=== PATIENT | female | born 1935 ===

== ENCOUNTER → 2016-06-12 | Outpatient (CLI) | payer OTHER, BC ==
[~2016-06-12] MED LIST: ACET-1311 PO; AMOX1TAB43 PO; B-COTAB18 PO; CMD3 PO; FIBE1CHW PO; LVNIS60 SQ; MELA1TAB54 PO; NUTR-706 PO; POLY335019 PO; RISP0.5T10 PO; TMFUDL30 PO; VENL150C PO; WARF2TAB8 PO
[2016-06-12 10:34] LABS: BASO % 0.6 %; BASO ABS # 0.03 K/uL (0-0.2); COMPLETE YES; EOS % 1.5 %; HEMATOCRIT 38.2 % (37-47); IG% 0.2 %; LYMPH ABS # 1.42 K/uL (1.2-3.4); MEAN CELL VOLUME 93.9 fL (80-100); MONO % 14.8 %; NEUT % 52.9 %; PLATELET COUNT 240 K/uL (130-400); RED BLOOD COUNT 4.07 M/uL (4.2-5.4); WHITE BLOOD COUNT 4.73 K/uL (4.8-10.8)
[2016-06-12 10:44] LABS: BLOOD UREA NITROGEN 15 mg/dl (7-18); BUN/CREATININE RATIO 21.4 (10-20); CALCIUM 8.6 mg/dl (8.5-10.1); CARBON DIOXIDE 27 mmol/L (21-32); CHLORIDE 108 mmol/L (98-107); CREATININE 0.71 mg/dl (0.60-1.20); GLUCOSE 74 mg/dl (70-99); SODIUM 145 mmol/L (136-145)
--- NOTE | 2016-06-13 11:38 | CODING QUERY NO DIAGNOSIS ---
TREATMENT RENDERED WITHOUT A DIAGNOSIS 35 To promote full compliance with coding requirements relating to patient care, physician participation is requested in all cases of water vessel captain uncertainty. Please assist us with providing a diagnosis/symptom for the test(s) below: A diagnosis/symptom was not documented on your Order. A valid diagnosis/symptom is required to bill all insurances. Please remember that we are unable to code a diagnosis of rule out, probable, possible, questionable, or suspected. DOS 06/12/16 Tests that require a diagnosis: * PARTIAL RENAL PROFILE DIAGNOSIS: * CBC w/DIFF DIAGNOSIS: * BMP DIAGNOSIS: Provider Signature: Date: Thank you Yecenia Wing Traction Information Management Once completed, please kindly fax back to [phone] For questions please call [phone]
== END | disposition home or self-care (01) ==
LOC: C.LABOUTLO 10:05
PROVIDERS: ATTEND Internal Medicine
DX: Z00.00 Encounter for general adult medical examination without abnormal findings (principal)

== ENCOUNTER → 2016-06-18 | Outpatient (CLI) | payer OTHER, BC ==
[2016-06-18 10:42] LABS: INR 2.7 (0.9-1.1); PROTHROMBIN TIME (PATIENT) 30.1 SECONDS (9.0-12.0)
--- NOTE | 2016-06-19 13:14 | CODING QUERY NO DIAGNOSIS ---
TREATMENT RENDERED WITHOUT A DIAGNOSIS 35 To promote full compliance with coding requirements relating to patient care, physician participation is requested in all cases of electronics engineering manager uncertainty. Please assist us with providing a diagnosis/symptom for the test(s) below: A diagnosis/symptom was not documented on your Order. A valid diagnosis/symptom is required to bill all insurances. Please remember that we are unable to code a diagnosis of rule out, probable, possible, questionable, or suspected. DOS 06/18/16 Tests that require a diagnosis: * PT/INR DIAGNOSIS: Provider Signature: Date: Thank you Yecenia Wing Health Information Management Once completed, please kindly fax back to [phone] For questions please call [phone]
== END | disposition home or self-care (01) ==
LOC: C.LABOUTLO 10:00
PROVIDERS: ATTEND Internal Medicine
DX: Z00.00 Encounter for general adult medical examination without abnormal findings (principal)

== ENCOUNTER 2016-06-28 19:05 | Inpatient (IN) | payer OTHER, BC ==
[~2016-06-28] VITALS: Ht 162.6 cm; Wt 60.0 kg
[~2016-06-28 19:05] MED LIST changes: -AMOX1TAB43 PO; -TMFUDL30 PO; -WARF2TAB8 PO
[2016-06-28] MEDS ORDERED: WARF2TAB8 PO (19:30)
[2016-06-28] MEDS ORDERED: SODIUM CHLORIDE 0.9% 500ML 500 ML IV STA (19:36)
[2016-06-28] MEDS ORDERED: SODIUM CHLORIDE 0.9% 1000ML 1,000 ML IV STA (19:36)
[2016-06-28 19:40] LABS: BASO % 0.5 %; BASO ABS # 0.02 K/uL (0-0.2); COMPLETE YES; EOS % 0.7 %; HEMATOCRIT 36.9 % (37-47); IG% 0.2 %; LYMPH % 19.5 %; LYMPH ABS # 0.86 K/uL (1.2-3.4); MEAN CELL VOLUME 93.2 fL (80-100); MEAN CORPUSCULAR HEMOGLOBIN 31.3 pg (25-34); MEAN CORPUSCULAR HGB CONC 33.6 g/dl (32-36); MEAN PLATELET VOLUME 10.3 fL (7.4-10.4); MONO % 16.5 %; NEUT % 62.6 %; PLATELET COUNT 207 K/uL (130-400); RED BLOOD COUNT 3.96 M/uL (4.2-5.4); WHITE BLOOD COUNT 4.42 K/uL (4.8-10.8)
[2016-06-28 19:54] LABS: INR 2.5 (0.9-1.1); PARTIAL THROMBOPLASTIN RATIO 1.6; PROTHROMBIN TIME (PATIENT) 27.4 SECONDS (9.0-12.0)
[2016-06-28 19:57] LABS: ALT/SGPT 22 U/L (12-78); BLOOD UREA NITROGEN 16 mg/dl (7-18); BUN/CREATININE RATIO 22.4 (10-20); CALCIUM 8.6 mg/dl (8.5-10.1); CARBON DIOXIDE 26 mmol/L (21-32); CHLORIDE 104 mmol/L (98-107); CREATININE 0.72 mg/dl (0.60-1.20); GLUCOSE 91 mg/dl (70-99); MAGNESIUM 2.1 mg/dl (1.8-2.4); POTASSIUM 3.8 mmol/L (3.5-5.1); SODIUM 140 mmol/L (136-145)
[2016-06-28 20:06] LABS: ALKALINE PHOSPHATASE 91 U/L (45-117); AST/SGOT 18 U/L (15-37); CKMB/CK RATIO 1.8 (0-3.0)
--- NOTE | 2016-06-28 20:08 | DIAGNOSTIC IMAGING REPORT ---
CHEST ONE VIEW PORTABLE CLINICAL HISTORY: Weakness. Shortness of breath. Altered mental status. COMPARISON STUDY: Chest CT February 05, 2016 per FINDINGS: There is no pneumothorax or pleural effusion. The patient is rotated. There is no evidence of pulmonary edema. No consolidation is present. Right infrahilar opacity favors atelectasis. IMPRESSION: 1. Rotated study. No acute findings identified. 2. Mild bibasilar opacities which favor atelectasis. Electronically signed by: Douglas Hicks M.D. 06/28/2016 8:06 PM Dictated Date/Time: 06/28/2016 8:05 PM
[2016-06-28 20:35] LABS: URINE APPEARANCE CLOUDY (CLEAR); URINE BILIRUBIN NEG (NEG); URINE COLOR YELLOW; URINE EPITHELIAL CELL AUTO >30 /lpf (0-5); URINE NITRITE POS (NEG); URINE PH 7.5 (4.5-7.5); URINE SPECIFIC GRAVITY 1.026 (1.000-1.030); UROBILINOGEN POS (NEG)
[2016-06-28 20:39] LABS: MANUAL MICROSCOPIC REQUIRED? NO; REVIEW REQ? YES
--- NOTE | 2016-06-28 20:50 | DIAGNOSTIC IMAGING REPORT ---
CT OF THE HEAD WITHOUT CONTRAST CLINICAL HISTORY: Altered mental status. Anticoagulation. COMPARISON STUDY: Head CT February 05, 2016. CT DOSE: 1095.08 mGy.cm TECHNIQUE: Helical axial images of the head were obtained without IV contrast. Automated exposure control was utilized for the study. FINDINGS: No acute intracranial hemorrhage, midline shift or mass effect is present. Mild ventricular dilatation is unchanged. The basilar cisterns are patent. There are no extra-axial collections. Moderate white matter hypodensities are unchanged and suggest small vessel disease. There are no findings to suggest acute dural sinus thrombosis or acute territorial infarct. There is no calvarial fracture. The sinuses are clear. IMPRESSION: No acute intracranial findings. Electronically signed by: Douglas Hicks M.D. 06/28/2016 8:48 PM Dictated Date/Time: 06/28/2016 8:46 PM
--- NOTE | 2016-06-28 21:08 | DIAGNOSTIC IMAGING REPORT ---
CT OF THE ABDOMEN AND PELVIS WITHOUT CONTRAST CLINICAL HISTORY: Left lower quadrant pain. Altered mental status. COMPARISON STUDY: CT of the abdomen and pelvis February 06, 2016. TECHNIQUE: Axial images of the abdomen and pelvis were obtained without IV contrast. Images were reviewed in the axial, sagittal, and coronal planes. FINDINGS: A small hiatal hernia is noted. Evaluation of the abdomen and pelvis is suboptimal on this unenhanced exam. Several left hepatic lobe cysts are again noted. Unenhanced images of the spleen, adrenal glands, kidneys and pancreas are unremarkable. There is no biliary or pancreatic ductal dilatation. Mild gallbladder distention is noted without pericholecystic infiltration. No pneumatosis, free air or portal venous gas is present. There is no evidence for a bowel obstruction. A moderate amount of stool is noted within the colon and the rectum. There is no lymphadenopathy. No ascites is present. There is an old severe L1 compression fracture with retropulsion which were shown on prior exam of February 06, 2016. IMPRESSION: 1. No acute process within the abdomen or pelvis on this unenhanced exam. 2. Moderate amount of stool within the colon. 3. Mild gallbladder distention without pericholecystic infiltration. Electronically signed by: Douglas Hicks M.D. 06/28/2016 9:06 PM Dictated Date/Time: 06/28/2016 8:58 PM
[2016-06-28] MEDS ORDERED: CEFTRIAXONE SOD INJ 1 GM ADDVIAL IV STA (21:52)
[2016-06-29] MEDS ORDERED: PIPERACILLIN/TAZOBACTAM 4.5 GM/100ML D5W IV STA (00:26)
[2016-06-29] MEDS ORDERED: DOCUSATE SODIUM/SENNA 50/8.6MG TAB PO ONE (00:41)
[2016-06-29] MEDS ORDERED: ONDANSETRON INJ 2 MG/ML 2 ML VIAL IV PRN (00:45)
[2016-06-29] MEDS ORDERED: HALOPERIDOL LACTATE 5 MG/ML 1 ML VIAL IM PRN (00:45)
[2016-06-29] MEDS ORDERED: HALOPERIDOL 1 MG TAB PO PRN (00:45)
[2016-06-29] MEDS ORDERED: ACETAMINOPHEN 325 MG TAB PO PRN (00:45)
[2016-06-29] MEDS ORDERED: LACTATED RINGER'S 1000ML 1,000 ML IV ONE (00:45)
[2016-06-29] MEDS ORDERED: ALBUT/IPRATROP 3MG/0.5MG NEB 3 ML VIAL INH PRN (01:00)
[2016-06-29] MEDS ORDERED: PIPERACILL/TAZOBAC IV 4.5 GM in DEXTROSE 5% 100ML IV ONE (01:00)
[2016-06-29] MEDS ORDERED: ALBUT/IPRATROP 3MG/0.5MG NEB 3 ML VIAL INH STA (01:09)
[2016-06-29] MEDS ORDERED: PIPERACILL/TAZOBAC CONSULT ACTIVE PRN (01:15)
--- NOTE | 2016-06-29 02:38 | EMERGENCY ROOM VISIT NOTE ---
History Report prepared by Serena: Nano Rhodes Under the Supervision of: Dr. Cooper Chowdhury M.D. First contact with patient: 19:15 Chief Complaint: ALTERED MENTAL STATUS Stated Complaint: [facility] Nursing Triage Summary: Patient arrives to ED via ALS from [facility] for AMS. According to EMS, staff reports that patient has been increasingly lethargic, not opening her eyes much , and has been non-verbal. Patient has a hx of dementia, but staff report "she normally has her eyes open and is singing." Also noted to have periods of hypoxia, with O2 saturations dropping into 80's. Also reports that patient was febrile at [facility], with temperatures reaching 101. History of Present Illness The patient is an 81 year old female who presents to the Emergency Room via ALS with complaints of persistent altered mental status with onset today. Per son, the patient is nonverbal; he provided the history. The patient started to vomit 2 days ago and developed a fever. One hour ago, the patients son received a call from the patient's residence, [facility], that the patient had labored breathing and that her oxygen saturation was low. [facility] informed the patients son that the patient had a low grade fever all week. The patient has a history of blood clots, and four months ago she was treated at this hospital for blood clots. The patient is on Coumadin. Additionally, the patient's son states that he is her power of state's attorney and states that she is DNR. The history is limited due to the patient's nonverbal status. Source of History: family History Limited By: other (nonverbal) Onset: today Position: other (global) Quality: other (altered mental status) Timing: other (persistent) Associated Symptoms: + fevers, + vomiting Note: The patient had labored breathing and low oxygen saturation at her residence. Review of Systems See HPI for pertinent positives and negatives. A total of ten systems were reviewed and were otherwise negative. Past Medical & Surgical Medical Problems: (1) Acute cerebral hemorrhage (2) Dementia (3) Depression (4) Encephalopathy (5) HLD (hyperlipidemia) (6) Syncope Surgical Problems: (1) unknown surgical history Family History Patient reports no known family medical history. Social History Smoking Status: Unknown if Ever Smoked Alcohol Use: none Drug Use: none Marital Status: Housing Status: retirement Occupation Status: retired Current/Historical Medications Scheduled B-Complex Vitamins (Vitamin B Complex), 2 TABS PO DAILY Enteral Nutrition Formula (Ensure), 1 CAN PO TID Fiber (Fiber Select Gummies), 2 TABS PO DAILY Melatonin (Melatonin), 5 MG PO HS Polyethylene Glycol 3350 (Miralax), 17 GM PO DAILY Risperidone (Risperdal), 0.5 MG PO HS Venlafaxine Hcl (Effexor Xr), 150 MG PO DAILY Warfarin Sod (Jantoven), 4 MG PO DIRECTED Warfarin Sod (Jantoven), 1.5 TABS PO DIRECTED Scheduled PRN Acetaminophen (Tylenol), 325 MG PO Q4H PRN for Pain or Fever Allergies Coded Allergies: No Known Allergies (Unverified , 06/28/16) Physical Exam Vital Signs Date Time Temp Pulse Resp B/P Pulse Ox O2 Delivery O2 Flow Rate FiO2 06/28/16 23:18 91 20 143/77 96 Room Air 06/28/16 21:30 83 20 140/79 97 Room Air 06/28/16 20:01 92 20 147/76 94 Room Air 06/28/16 19:38 102 06/28/16 19:14 37.0 114 20 99/74 96 Room Air 06/28/16 19:14 96 Room Air Physical Exam GENERAL: Tired-appearing, in no acute distress. HENT: Normocephalic, atraumatic. Oropharynx unremarkable. EYES: Normal conjunctiva. Sclera non-icteric. NECK: Supple. No nuchal rigidity. FROM. No JVD. RESPIRATORY: Clear to auscultation. CARDIAC: Tachycardic rate, normal rhythm. Extremities warm and well perfused. Pulses equal. ABDOMEN: Soft, non-distended. Left lower tenderness to palpation. No rebound or guarding. No masses. RECTAL: Deferred. MUSCULOSKELETAL: Chest examination reveals no tenderness. The back is symmetrical on inspection without obvious abnormality. There is no CVA tenderness to palpation. No joint edema. LOWER EXTREMITIES: Calves are equal size bilaterally and non-tender. No edema. No discoloration. NEURO: Demented sensorium. Not following commands (baseline, per son). No sensory or motor deficits noted. SKIN: No rash or jaundice noted. Medical Decision & Procedures ER Provider Diagnostic Interpretation: X ray results as stated below per my interpretation and radiologist interpretation. Other radiology results as stated below per my review and radiologist interpretation CHEST ONE VIEW PORTABLE CLINICAL HISTORY: Weakness. Shortness of breath. Altered mental status. COMPARISON STUDY: Chest CT February 05, 2016 per FINDINGS: There is no pneumothorax or pleural effusion. The patient is rotated. There is no evidence of pulmonary edema. No consolidation is present. Right infrahilar opacity favors atelectasis. IMPRESSION: 1. Rotated study. No acute findings identified. 2. Mild bibasilar opacities which favor atelectasis. Electronically signed by: Douglas Hicks M.D. 06/28/2016 8:06 PM Dictated Date/Time: 06/28/2016 8:[address] OF THE HEAD WITHOUT CONTRAST CLINICAL HISTORY: Altered mental status. Anticoagulation. COMPARISON STUDY: Head CT February 05, 2016. CT DOSE: 1095.08 mGy.cm TECHNIQUE: Helical axial images of the head were obtained without IV contrast. Automated exposure control was utilized for the study. FINDINGS: No acute intracranial hemorrhage, midline shift or mass effect is present. Mild ventricular dilatation is unchanged. The basilar cisterns are patent. There are no extra-axial collections. Moderate white matter hypodensities are unchanged and suggest small vessel disease. There are no findings to suggest acute dural sinus thrombosis or acute territorial infarct. There is no calvarial fracture. The sinuses are clear. IMPRESSION: No acute intracranial findings. Electronically signed by: Douglas Hicks M.D. 06/28/2016 8:48 PM Dictated Date/Time: 06/28/2016 8:[address] OF THE ABDOMEN AND PELVIS WITHOUT CONTRAST CLINICAL HISTORY: Left lower quadrant pain. Altered mental status. COMPARISON STUDY: CT of the abdomen and pelvis February 06, 2016. TECHNIQUE: Axial images of the abdomen and pelvis were obtained without IV contrast. Images were reviewed in the axial, sagittal, and coronal planes. FINDINGS: A small hiatal hernia is noted. Evaluation of the abdomen and pelvis is suboptimal on this unenhanced exam. Several left hepatic lobe cysts are again noted. Unenhanced images of the spleen, adrenal glands, kidneys and pancreas are unremarkable. There is no biliary or pancreatic ductal dilatation. Mild gallbladder distention is noted without pericholecystic infiltration. No pneumatosis, free air or portal venous gas is present. There is no evidence for a bowel obstruction. A moderate amount of stool is noted within the colon and the rectum. There is no lymphadenopathy. No ascites is present. There is an old severe L1 compression fracture with retropulsion which were shown on prior exam of February 06, 2016. IMPRESSION: 1. No acute process within the abdomen or pelvis on this unenhanced exam. 2. Moderate amount of stool within the colon. 3. Mild gallbladder distention without pericholecystic infiltration. Electronically signed by: Douglas Hicks M.D. 06/28/2016 9:06 PM Dictated Date/Time: 06/28/2016 8:58 PM Laboratory Results 06/28/16 19:20 Red Blood Count 3.96, Mean Corpuscular Volume 93.2, Mean Corpuscular Hemoglobin 31.3, Mean Corpuscular Hemoglobin Concent 33.6, Mean Platelet Volume 10.3, Neutrophils (%) (Auto) 62.6, Lymphocytes (%) (Auto) 19.5, Monocytes (%) (Auto) 16.5, Eosinophils (%) (Auto) 0.7, Basophils (%) (Auto) 0.5, Neutrophils # (Auto ) 2.77, Lymphocytes # (Auto) 0.86, Monocytes # (Auto) 0.73, Eosinophils # (Auto ) 0.03, Basophils # (Auto) 0.02 06/28/16 19:20 Test 06/28/16 19:20 06/28/16 19:28 06/28/16 20:10 White Blood Count 4.42 K/uL (4.8-10.8) Red Blood Count 3.96 M/uL (4.2-5.4) Hemoglobin 12.4 g/dL (12.0-16.0) Hematocrit 36.9 % (37-47) Mean Corpuscular Volume 93.2 fL (80-100) Mean Corpuscular Hemoglobin 31.3 pg (25-34) Mean Corpuscular Hemoglobin Concent 33.6 g/dl (32-36) Platelet Count 207 K/uL (130-400) Mean Platelet Volume 10.3 fL (7.4-10.4) Neutrophils (%) (Auto) 62.6 % Lymphocytes (%) (Auto) 19.5 % Monocytes (%) (Auto) 16.5 % Eosinophils (%) (Auto) 0.7 % Basophils (%) (Auto) 0.5 % Neutrophils # (Auto) 2.77 K/uL (1.4-6.5) Lymphocytes # (Auto) 0.86 K/uL (1.2-3.4) Monocytes # (Auto) 0.73 K/uL (0.11-0.59) Eosinophils # (Auto) 0.03 K/uL (0-0.5) Basophils # (Auto) 0.02 K/uL (0-0.2) RDW Standard Deviation 45.2 fL (36.4-46.3) RDW Coefficient of Variation 13.3 % (11.5-14.5) Immature Granulocyte % (Auto) 0.2 % Immature Granulocyte # (Auto) 0.01 K/uL (0.00-0.02) Prothrombin Time 27.4 SECONDS (9.0-12.0) Prothromb Time International Ratio 2.5 (0.9-1.1) Activated Partial Thromboplast Time 40.4 SECONDS (21.0-31.0) Partial Thromboplastin Ratio 1.6 Anion Gap 10.0 mmol/L (3-11) Estimated GFR () 91.0 Estimated GFR (Non- 78.5 BUN/Creatinine Ratio 22.4 (10-20) Calcium Level 8.6 mg/dl (8.5-10.1) Magnesium Level 2.1 mg/dl (1.8-2.4) Total Bilirubin 0.2 mg/dl (0.2-1) Direct Bilirubin < 0.1 mg/dl (0-0.2) Aspartate Amino Transf (AST/SGOT) 18 U/L (15-37) Alanine Aminotransferase (ALT/SGPT) 22 U/L (12-78) Alkaline Phosphatase 91 U/L (45-117) Total Creatine Kinase 45 U/L (26-192) Creatine Kinase MB 0.8 ng/ml (0.5-3.6) Creatine Kinase MB Ratio 1.8 (0-3.0) Troponin I < 0.015 ng/ml (0-0.045) Total Protein 6.4 gm/dl (6.4-8.2) Albumin 3.0 gm/dl (3.4-5.0) Lipase 130 U/L (73-393) Thyroid Stimulating Hormone (TSH) 0.760 uIu/ml (0.300-4.500) Bedside Lactic Acid Venous 1.31 mmol/L (0.90-1.70) Urine Color YELLOW Urine Appearance CLOUDY (CLEAR) Urine pH 7.5 (4.5-7.5) Urine Specific [place] 1.026 (1.000-1.030) Urine Protein NEG (NEG) Urine Glucose (UA) NEG (NEG) Urine Ketones TRACE (NEG) Urine Occult Blood NEG (NEG) Urine Nitrite POS (NEG) Urine Bilirubin NEG (NEG) Urine Urobilinogen POS (NEG) Urine Leukocyte Esterase TRACE (NEG) Urine WBC (Auto) 5-10 /hpf (0-5) Urine RBC (Auto) 0-4 /hpf (0-4) Urine Hyaline Casts (Auto) 1-5 /lpf (0-5) Urine Epithelial Cells (Auto) >30 /lpf (0-5) Urine Bacteria (Auto) 4+ (NEG) Urine Renal Epithelial Cells /lpf (0-5) Laboratory results reviewed by me Medications Administered Medications (Trade) Dose Ordered Sig/Ashkan Route Start Time Stop Time Status Last Admin Dose Admin Sodium Chloride 1,000 ml @ 125 mls/hr Q8H STAT IV 06/28/16 19:36 06/29/16 00:55 DC 06/28/16 20:00 125 MLS/HR Sodium Chloride (Nss 500ml) 500 ml @ 999 mls/hr Q31M STAT IV 06/28/16 19:36 06/28/16 20:06 DC 06/28/16 20:00 999 MLS/HR Ceftriaxone Sodium (Rocephin Inj) 1 gm NOW STAT IV 06/28/16 21:52 06/28/16 21:54 DC 06/28/16 22:02 1 GM ECG Indication: altered mental status Rate (beats per minute): 105 Rhythm: sinus tachycardia Findings: no ectopy (non specific ST semgent, poor baseline data) ED Course 1930: The patient was evaluated in room A10. A complete history and physical exam was performed. 1935: Sodium Chloride 500 ml @ 999 mls/hr IV, Sodium Chloride 1000 ml @ 125 mls/ hr IV 2151: Rocephin 1 gm IV 2156: I reevaluated the patient; she is resting. 2214: I discussed the case with Dr. Rucker ([facility]); he will further evaluate the patient. Medical Decision Prior records/ancillary studies reviewed and summarized above. Nursing notes reviewed and agree them. Additional history obtained from her son. The patient's history was concerning for altered mental status. Differential diagnosis: Etiologies such as infection, hypoglycemia, electrolyte abnormalities, cardiac sources, intracerebral event, toxicologic, neurologic, as well as others were entertained. Physical examination: As above. ER treatment provided: IV Lock Normal saline hydration. IV Rocephin On reassessment the patient felt better. Diagnostics interpretation by me: ECG: Nonischemic The labs revealed an unremarkable CBC. INR was therapeutic. Chemistry panel was unremarkable as well as cardiac markers. LFTs and lipase were negative. Imaging studies: Head and abdominal CT as above. Chest x-ray as above. The patient had a change in mental status. It appears that this is due to a UTI. The patient has a therapeutic INR. Further workup for PE was not performed. The patient is a DO NOT RESUSCITATE per her son who is her power of state's attorney. He is comfortable with admission, fluids and antibiotics. Consultation: A consultation was placed with the hospitalist. The case was discussed and diagnostics were reviewed. The patient was evaluated in the ER for further treatment. The chart was completed utilizing [employer] Speech voice recognition software. Grammatical errors, random word insertions, pronoun errors, and incomplete sentences are an occasional consequence of this system due to software limitations, ambient noise, and hardware issues. Any formal questions or concerns about the content, text, or information contained within the body of this dictation should be directly addressed to the physician for clarification. Consults Time Called: 2209 Consulting Physician: Dr. Rucker ([facility]) Returned Call: 2214 I discussed the case with Dr. Rucker (jania); he will further evaluate the patient. Impression Primary Impression: Metabolic encephalopathy Additional Impression: UTI (urinary tract infection) Scribe Attestation The scribe's documentation has been prepared under my direction and personally reviewed by me in its entirety. I confirm that the note above accurately reflects all work, treatment, procedures, and medical decision making performed by me. Departure Information Dispostion Being Evaluated By Hospitalist [facility] Patient Instructions My [facility] Problem Qualifiers
[2016-06-29] MEDS: PIPERACILL/TAZOBAC IV 3.375 GM in DEXTROSE 5% 100ML IV SCH ×3 (05:32→22:14)
--- NOTE | 2016-06-29 06:04 | HISTORY & PHYSICAL EXAMINATION ---
DATE OF ADMISSION: 06/28/2016 PRIMARY CARE PHYSICIAN: Dr. Treviño. History obtained from patient's son and records. Limited history obtained from px secondary to dementia. CHIEF COMPLAINT: Altered mental status, increased lethargy. HISTORY OF PRESENT ILLNESS: Medical history significant for dementia, pulmonary embolism, on anticoagulation , hypertension, hyperlipidemia. Recent confinement last January 2016 for acute bilateral pulmonary embolism with RV strain. The patient discharged on Coumadin. Last few days, the patient looked tired, as per son; noted to be increasingly lethargic, not opening her eyes. Nonverbal. Normally, patient has her eyes open, is singing. Px co of achy L sided abd pain w/ nausea/emesis. Moist cough noted, episodic hypoxemia at the correction. Temperature of 101 as per records. At the Emergency Room, the patient received IV ceftriaxone for UTI. MEDICAL HISTORY: As above. HOME MEDICATIONS: Include Risperdal, Effexor, Jantoven, Tylenol, fiber, melatonin, MiraLax. ALLERGIES: No known drug allergies. FAMILY HISTORY: Could not be obtained. PERSONAL AND SOCIAL HISTORY: Cannot be obtained. correction resident. REVIEW OF SYSTEMS: Cannot be reliably obtained. PHYSICAL EXAMINATION: VITAL SIGNS: Blood pressure was noted to be 147/76, pulse rate 100, RR 20, T 37 O2 sats 94 on room air. GENERAL: Noted to be demented.. No respiratory distress. Eyes closed. HEENT: pink palp conjunctivae, dry mucosa. NECK: Short neck. LUNGS: Decreased breath sounds, decreased effort. HEART: Regular rate and rhythm. ABDOMEN: Some tenderness on the left side. EXTREMITIES: No edema. no tenderness NEUROLOGIC: Demented. LABORATORIES: Hemoglobin was noted to be 12.5, hematocrit 36.9, white cells count 4.4, platelets 207. Sodium 140, potassium 3.8, chloride 104, CO2 26, BUN 16, creatinine 0.7, glucose 91. Normal lactic acid. INR was 2.5. CT head, no acute pathology. Chest x-ray right infrahilar opacity versus atelectasis. CT abdomen and pelvis, moderate amount of stool. UA, nitrite positive., ASSESSMENT: 1. Delirium on dementia secondary to infection possible aspiration pneumonitis with cough symptoms and episodic hypoxemia at the correction UTI no overt sepsis 2. abdominal pain multifactorial : urinary tract infection constipation 3. history of pulmonary embolism. INR therapeutic PLAN: GMF ff CS, Zosyn aspiration precautions for now. IVF Bowel regimen. DVT prophylaxis, Coumadin, INR 2 to 3. DNR, as per son/POA, Candy Garcia. Contact number [phone]. [facility]
[2016-06-29 06:09] LABS: BASO % 0.9 %; BASO ABS # 0.03 K/uL (0-0.2); COMPLETE YES; EOS % 0.6 %; HEMATOCRIT 34.7 % (37-47); LYMPH % 31.2 %; LYMPH ABS # 1.08 K/uL (1.2-3.4); MEAN CELL VOLUME 91.8 fL (80-100); MEAN CORPUSCULAR HEMOGLOBIN 30.4 pg (25-34); MEAN CORPUSCULAR HGB CONC 33.1 g/dl (32-36); MEAN PLATELET VOLUME 10.1 fL (7.4-10.4); MONO % 24.6 %; NEUT % 42.7 %; PLATELET COUNT 186 K/uL (130-400); RED BLOOD COUNT 3.78 M/uL (4.2-5.4); WHITE BLOOD COUNT 3.46 K/uL (4.8-10.8)
[2016-06-29 06:17] LABS: INR 2.4 (0.9-1.1); PROTHROMBIN TIME (PATIENT) 26.2 SECONDS (9.0-12.0)
[2016-06-29 06:47] LABS: BLOOD UREA NITROGEN 10 mg/dl (7-18); BUN/CREATININE RATIO 14.6 (10-20); CALCIUM 8.2 mg/dl (8.5-10.1); CARBON DIOXIDE 29 mmol/L (21-32); CHLORIDE 106 mmol/L (98-107); CREATININE 0.68 mg/dl (0.60-1.20); GLUCOSE 83 mg/dl (70-99); POTASSIUM 3.7 mmol/L (3.5-5.1); SODIUM 141 mmol/L (136-145)
[2016-06-29] MEDS ORDERED: INFLUENZA VIRUS QUAD VACCINE 0.5 ML SYR IM. ONE (07:00)
[2016-06-29] MEDS ORDERED: INFLUENZA ADMINISTRATION CHARGE ONE (07:00)
[2016-06-29] MEDS ORDERED: PNEUMOCOCCAL ADMINISTRATION CHARGE ONE (07:00)
[2016-06-29] MEDS ORDERED: PNEUMOCOCCAL POLYSACCHARIDES 25 MCG/0.5 ML VIAL/SYR IM. ONE (07:00)
[2016-06-29 07:25] VITALS: BP 141/78; PULSE 90; TEMP 37.1; O2SAT 95
[2016-06-29] MEDS: VITAMIN B COMPLEX TAB PO SCH (07:50)
[2016-06-29] MEDS: VENLAFAXINE HCL XR 150 MG CAPXR PO SCH (07:51)
[2016-06-29] MEDS: DOCUSATE SODIUM/SENNA 50/8.6MG TAB PO SCH ×2 (07:52→20:52)
[2016-06-29] MEDS: POLYETHYLENE (MIRALAX) 17 GM PACK PO SCH (07:53)
[2016-06-29 08:00] VITALS: O2SAT 95
--- NOTE | 2016-06-29 14:37 | Progress Note ---
Medicine Progress Note Date & Time of Visit: Jun 29, 2016 at 14:27. Subjective seen sitting up in bed, awake, alert, focuses to examiner but not oriented, speaks random words appears comfortable has coarse cough denies chest pain, dyspnea, abdominal pain, nausea no other signs/symptoms noted Objective Last 8 Hrs Date Time Temp Pulse Resp B/P Pulse Ox O2 Delivery O2 Flow Rate FiO2 06/29/16 08:00 95 Room Air 06/29/16 07:25 37.1 90 18 141/78 95 Room Air Physical Exam: General- oriented x 3, not in distress, speaks in sentences with no effort Eyes- EOMI, anicteric ENT- oropharynx clear Neck- supple, no JVD Lungs- mild rales at the bases, no wheeze Heart- regular rhythm; no murmur, normal rate Abdomen- normal bowel sounds, soft, nontender Extremities- no pretibial edema, no calf tenderness; peripheral pulses intact Neuro- alert, not oriented, moves all extremities equally Skin- warm & dry Laboratory Results: Last 24 Hours Test 06/28/16 19:20 06/28/16 19:28 06/28/16 20:10 06/29/16 05:25 White Blood Count 4.42 K/uL 3.46 K/uL Red Blood Count 3.96 M/uL 3.78 M/uL Hemoglobin 12.4 g/dL 11.5 g/dL Hematocrit 36.9 % 34.7 % Mean Corpuscular Volume 93.2 fL 91.8 fL Mean Corpuscular Hemoglobin 31.3 pg 30.4 pg Mean Corpuscular Hemoglobin Concent 33.6 g/dl 33.1 g/dl Platelet Count 207 K/uL 186 K/uL Mean Platelet Volume 10.3 fL 10.1 fL Neutrophils (%) (Auto) 62.6 % 42.7 % Lymphocytes (%) (Auto) 19.5 % 31.2 % Monocytes (%) (Auto) 16.5 % 24.6 % Eosinophils (%) (Auto) 0.7 % 0.6 % Basophils (%) (Auto) 0.5 % 0.9 % Neutrophils # (Auto) 2.77 K/uL 1.48 K/uL Lymphocytes # (Auto) 0.86 K/uL 1.08 K/uL Monocytes # (Auto) 0.73 K/uL 0.85 K/uL Eosinophils # (Auto) 0.03 K/uL 0.02 K/uL Basophils # (Auto) 0.02 K/uL 0.03 K/uL RDW Standard Deviation 45.2 fL 44.3 fL RDW Coefficient of Variation 13.3 % 13.1 % Immature Granulocyte % (Auto) 0.2 % 0.0 % Immature Granulocyte # (Auto) 0.01 K/uL 0.00 K/uL Prothrombin Time 27.4 SECONDS 26.2 SECONDS Prothromb Time International Ratio 2.5 2.4 Activated Partial Thromboplast Time 40.4 SECONDS Partial Thromboplastin Ratio 1.6 Sodium Level 140 mmol/L 141 mmol/L Potassium Level 3.8 mmol/L 3.7 mmol/L Chloride Level 104 mmol/L 106 mmol/L Carbon Dioxide Level 26 mmol/L 29 mmol/L Anion Gap 10.0 mmol/L 6.0 mmol/L Blood Urea Nitrogen 16 mg/dl 10 mg/dl Creatinine 0.72 mg/dl 0.68 mg/dl Estimated GFR () 91.0 95.1 Estimated GFR (Non- 78.5 82.0 BUN/Creatinine Ratio 22.4 14.6 Random Glucose 91 mg/dl 83 mg/dl Calcium Level 8.6 mg/dl 8.2 mg/dl Magnesium Level 2.1 mg/dl Total Bilirubin 0.2 mg/dl Direct Bilirubin < 0.1 mg/dl Aspartate Amino Transf (AST/SGOT) 18 U/L Alanine Aminotransferase (ALT/SGPT) 22 U/L Alkaline Phosphatase 91 U/L Total Creatine Kinase 45 U/L Creatine Kinase MB 0.8 ng/ml Creatine Kinase MB Ratio 1.8 Troponin I < 0.015 ng/ml Total Protein 6.4 gm/dl Albumin 3.0 gm/dl Lipase 130 U/L Thyroid Stimulating Hormone (TSH) 0.760 uIu/ml Bedside Lactic Acid Venous 1.31 mmol/L Urine Color YELLOW Urine Appearance CLOUDY Urine pH 7.5 Urine Specific [place] 1.026 Urine Protein NEG Urine Glucose (UA) NEG Urine Ketones TRACE Urine Occult Blood NEG Urine Nitrite POS Urine Bilirubin NEG Urine Urobilinogen POS Urine Leukocyte Esterase TRACE Urine WBC (Auto) 5-10 /hpf Urine RBC (Auto) 0-4 /hpf Urine Hyaline Casts (Auto) 1-5 /lpf Urine Epithelial Cells (Auto) >30 /lpf Urine Bacteria (Auto) 4+ Urine Renal Epithelial Cells /lpf Date/Time Source Procedure Growth Status 06/28/16 20:00 Blood Blood Culture Pending Received 06/28/16 19:20 Blood Blood Culture Pending Received 06/29/16 05:55 Nasal MRSA DNA Surveillance Screen - Final Specimen Negative for MRSA by DNA Probe Complete 06/28/16 20:10 Urine , Clean Catch Urine Culture Pending Received Assessment & Plan 81 year old female with history of Dementia, PE on coumadin, presenting with altered mental status ALTERED MENTAL STATUS LIKELY ENCEPHALOPATHY FROM POSSIBLE BILATERAL PNEUMONIA, R/O ASPIRATION POSSIBLE UTI - ff up blood culture urine culture - afebrile clinically appears stable - continue empiric Zosyn IV for now ABDOMINAL PAIN Senokot S ordered for constipation HISTORY OF PE - INR 2.4 - resume coumadin - INR daily DVT prophylaxis Coumadin Disposition pending Current Inpatient Medications: Current Inpatient Medications Medications (Trade) Dose Ordered Sig/Ashkan Route Start Time Stop Time Status Last Admin Dose Admin Acetaminophen (Tylenol Tab) 650 mg Q4H PRN PO 06/29/16 00:45 07/29/16 00:44 Risperidone (Risperdal Tab) 0.5 mg HS PO 06/29/16 21:00 07/29/16 20:59 Venlafaxine HCl (effeXOR EXTENDED REL CAP) 150 mg DAILY PO 06/29/16 08:00 07/29/16 08:59 06/29/16 07:51 150 MG Vitamin B Complex (Vitamin B Complex) 2 tab DAILY PO 06/29/16 08:00 07/29/16 07:59 06/29/16 07:50 2 TAB Polyethylene (Miralax Powder Packet) 17 gm QAM PO 06/29/16 08:00 07/29/16 07:59 06/29/16 07:53 17 GM Senna/Docusate Sodium (Senokot S Tab) 1 tab BID PO 06/29/16 08:00 07/29/16 08:59 06/29/16 07:52 1 TAB Piperacillin Sod/ Tazobactam Sod (Consult) 1 ea UD PRN N/A 06/29/16 01:15 07/29/16 01:14 Ondansetron HCl (Zofran Inj) 4 mg Q6H PRN IV 06/29/16 00:45 07/29/16 00:44 Haloperidol (Haldol Tab) 2 mg Q4H PRN PO 06/29/16 00:45 07/29/16 00:44 Haloperidol Lactate (Haldol Inj) 2 mg Q2H PRN IM 06/29/16 00:45 07/29/16 00:44 Albuterol/ Ipratropium 3 ml 3 ml Q2H PRN INH 06/29/16 01:00 07/29/16 00:59 Piperacillin Sod/ Tazobactam Sod/ Dextrose (Zosyn Iv/D5 100ml) 115 ml @ 28.75 mls/ hr Q8H IV 06/29/16 06:00 07/06/16 05:59 06/29/16 13:48 28.75 MLS/HR
[2016-06-29] MEDS: PATIENT'S HEIGHT AND/OR WEIGHT NEEDED SCH ×2 (15:30→17:30)
[2016-06-29 15:36] VITALS: BP 149/75; PULSE 80; TEMP 37.4; O2SAT 94
[2016-06-29] MEDS: WARFARIN SOD 4 MG TAB PO SCH (16:59)
[2016-06-29] MEDS: RISPERIDONE 0.5 MG TAB PO SCH (20:52)
[2016-06-29 22:27] VITALS: Ht 162.6 cm; Wt 60.0 kg
[2016-06-30 00:12] VITALS: BP 159/74; PULSE 51; TEMP 36.5; O2SAT 93
[2016-06-30] MEDS: PIPERACILL/TAZOBAC IV 3.375 GM in DEXTROSE 5% 100ML IV SCH ×3 (05:38→21:55)
[2016-06-30 06:31] LABS: INR 2.5 (0.9-1.1); PROTHROMBIN TIME (PATIENT) 27.7 SECONDS (9.0-12.0)
[2016-06-30] MEDS: VITAMIN B COMPLEX TAB PO SCH (07:35)
[2016-06-30] MEDS: DOCUSATE SODIUM/SENNA 50/8.6MG TAB PO SCH ×2 (07:35→20:42)
[2016-06-30] MEDS: VENLAFAXINE HCL XR 150 MG CAPXR PO SCH (07:36)
[2016-06-30] MEDS: POLYETHYLENE (MIRALAX) 17 GM PACK PO SCH (07:36)
[2016-06-30 07:45] VITALS: BP 150/75; PULSE 89; TEMP 36.8; O2SAT 96
[2016-06-30 15:18] VITALS: BP 125/72; PULSE 62; TEMP 37; O2SAT 98
[2016-06-30] MEDS: WARFARIN SOD 1 MG TAB PO SCH (17:08)
[2016-06-30] MEDS: WARFARIN SOD 0.5 MG TAB PO SCH (17:08)
[2016-06-30] MEDS: D5NSS + 20MEQ KCL 1,000 ML IV SCH (19:24)
[2016-06-30] MEDS: RISPERIDONE 0.5 MG TAB PO SCH (20:42)
--- NOTE | 2016-06-30 22:08 | Progress Note ---
Medicine Progress Note Date & Time of Visit: Jun 30, 2016 at 18:51. Subjective family visited, assisted patient with lunch noted by RNs to be somewhat drowsy in the afternoon, somewhat agitated on my exam, patient pleasantly confused, saying random words not in distress, comfortable Objective Last 8 Hrs Date Time Temp Pulse Resp B/P Pulse Ox O2 Delivery O2 Flow Rate FiO2 06/30/16 15:18 37.0 62 18 125/72 98 Physical Exam: General- oriented x 3, not in distress, speaks in sentences with no effort Eyes- EOMI, anicteric Neck- no JVD Lungs- mild rales at the bases, no wheezes, goo air entry Heart- regular rhythm; no murmur, normal rate Abdomen- normal bowel sounds, soft, nontender Extremities- no pretibial edema, no calf tenderness Neuro- alert, not oriented, moves all extremities equally Skin- warm & dry Laboratory Results: Last 24 Hours Test 06/30/16 06:00 Prothrombin Time 27.7 SECONDS Prothromb Time International Ratio 2.5 Assessment & Plan 81 year old female with history of Dementia, PE on coumadin, presenting with altered mental status ALTERED MENTAL STATUS LIKELY ENCEPHALOPATHY FROM POSSIBLE BILATERAL PNEUMONIA, R/O ASPIRATION and UTI - blood culture:pending urine culture: gram negative bacilli - remains afebrile per daughter in law chato, patient not yet at baseline mental status, usually more awake, pleasant - continue empiric Zosyn IV for now ff up cultures IV fluids added for poor oral intake - Speech Therapy evaluated patient, recommend pureed diet ABDOMINAL PAIN Senokot S ordered for constipation (+) BMs no signs of abdominal pain HISTORY OF PE - INR 2.5 - continue coumadin - INR daily DVT prophylaxis Coumadin Disposition pending management of pneumonia and UTI as noted above resident of [facility] Current Inpatient Medications: Current Inpatient Medications Medications (Trade) Dose Ordered Sig/Ashkan Route Start Time Stop Time Status Last Admin Dose Admin Acetaminophen (Tylenol Tab) 650 mg Q4H PRN PO 06/29/16 00:45 07/29/16 00:44 Risperidone (Risperdal Tab) 0.5 mg HS PO 06/29/16 21:00 07/29/16 20:59 06/29/16 20:52 0.5 MG Venlafaxine HCl (effeXOR EXTENDED REL CAP) 150 mg DAILY PO 06/29/16 08:00 2/21/17 08:59 06/30/16 07:36 150 MG Vitamin B Complex (Vitamin B Complex) 2 tab DAILY PO 06/29/16 08:00 07/29/16 07:59 06/30/16 07:35 2 TAB Polyethylene (Miralax Powder Packet) 17 gm QAM PO 06/29/16 08:00 07/29/16 07:59 06/30/16 07:36 17 GM Senna/Docusate Sodium (Senokot S Tab) 1 tab BID PO 06/29/16 08:00 07/29/16 08:59 06/30/16 07:35 1 TAB Piperacillin Sod/ Tazobactam Sod (Consult) 1 ea UD PRN N/A 06/29/16 01:15 07/29/16 01:14 Ondansetron HCl (Zofran Inj) 4 mg Q6H PRN IV 06/29/16 00:45 07/29/16 00:44 Haloperidol (Haldol Tab) 2 mg Q4H PRN PO 06/29/16 00:45 07/29/16 00:44 Haloperidol Lactate (Haldol Inj) 2 mg Q2H PRN IM 06/29/16 00:45 07/29/16 00:44 Albuterol/ Ipratropium 3 ml 3 ml Q2H PRN INH 06/29/16 01:00 07/29/16 00:59 Piperacillin Sod/ Tazobactam Sod/ Dextrose (Zosyn Iv/D5 100ml) 115 ml @ 28.75 mls/ hr Q8H IV 06/29/16 06:00 07/06/16 05:59 06/30/16 14:47 28.75 MLS/HR Warfarin Sodium (Coumadin Tab) 4 mg SuTuWeFrSa@1600 PO 06/29/16 16:00 07/29/16 15:59 06/29/16 16:59 4 MG Warfarin Sodium (Coumadin Tab) 1 mg MoTh@1600 PO 06/30/16 16:00 07/30/16 15:59 06/30/16 17:08 1 MG Warfarin Sodium (Coumadin Tab) 0.5 mg MoTh@1600 PO 06/30/16 16:00 07/30/16 15:59 06/30/16 17:08 0.5 MG
[2016-06-30 23:17] VITALS: BP 149/83; PULSE 95; TEMP 37.8; O2SAT 95
[2016-07-01 02:00] VITALS: TEMP 36.6
[2016-07-01] MEDS: PIPERACILL/TAZOBAC IV 3.375 GM in DEXTROSE 5% 100ML IV SCH ×3 (05:50→21:13)
[2016-07-01 07:18] LABS: BASO % 0.3 %; BASO ABS # 0.01 K/uL (0-0.2); COMPLETE YES; EOS % 0.8 %; LYMPH % 34.9 %; LYMPH ABS # 1.36 K/uL (1.2-3.4); MEAN CELL VOLUME 92.5 fL (80-100); MEAN CORPUSCULAR HEMOGLOBIN 31.1 pg (25-34); MEAN CORPUSCULAR HGB CONC 33.7 g/dl (32-36); MEAN PLATELET VOLUME 9.9 fL (7.4-10.4); MONO % 21.5 %; NEUT % 42.5 %; PLATELET COUNT 207 K/uL (130-400); RED BLOOD COUNT 4.11 M/uL (4.2-5.4)
[2016-07-01 07:22] VITALS: BP 126/79; PULSE 63; TEMP 37.4; O2SAT 77; O2SAT 94
[2016-07-01 07:31] LABS: INR 2.9 (0.9-1.1); PROTHROMBIN TIME (PATIENT) 32.1 SECONDS (9.0-12.0)
[2016-07-01 07:50] LABS: BUN/CREATININE RATIO 11.5 (10-20); CALCIUM 8.3 mg/dl (8.5-10.1); CREATININE 0.86 mg/dl (0.60-1.20)
[2016-07-01] MEDS: POLYETHYLENE (MIRALAX) 17 GM PACK PO SCH (07:55)
[2016-07-01] MEDS: DOCUSATE SODIUM/SENNA 50/8.6MG TAB PO SCH (07:55)
[2016-07-01] MEDS: VENLAFAXINE HCL XR 150 MG CAPXR PO SCH (07:56)
[2016-07-01] MEDS: VITAMIN B COMPLEX TAB PO SCH (07:56)
[2016-07-01] MEDS: D5NSS + 20MEQ KCL 1,000 ML IV SCH (12:36)
[2016-07-01 14:52] VITALS: BP 145/72; PULSE 79; TEMP 37.1; O2SAT 99
[2016-07-01] MEDS: WARFARIN SOD 4 MG TAB PO SCH (15:43)
[2016-07-01] MEDS ORDERED: DOCUSATE SODIUM/SENNA 50/8.6MG TAB PO PRN (16:30)
[2016-07-01] MEDS ORDERED: POLYETHYLENE (MIRALAX) 17 GM PACK PO PRN (16:30)
--- NOTE | 2016-07-01 16:36 | Progress Note ---
Medicine Progress Note Date & Time of Visit: Jul 01, 2016 at 16:23. Subjective Pt is pleasant and delirious. T max 100.4F overnight. She is confabulating and cannot follow instructions. She does not appear in distress. Per nurse she did not eat much breakfast as she was very fatigued this morning, however, she did eat well at lunch Nurse states someone came in from [facility] today and reported her baseline ambulation was max assist. BMs yesterday after reports of constipation and abdominal discomfort. Objective Last 8 Hrs Date Time Temp Pulse Resp B/P Pulse Ox O2 Delivery O2 Flow Rate FiO2 07/01/16 15:56 Room Air 07/01/16 14:52 37.1 79 20 145/72 99 Physical Exam: GEN: WNWD, in no acute distress, alert and disoriented HEENT: NC/AT, normal sclerae CARDIO: reg rate, S1/2 heard without m/g/r LUNGS: CTA bilaterally, no crackles, rales or wheezes, good diaphragmatic excursion. Limited exam as patient cannot sit forward or follow instruction to take deep breaths ABD: soft, non-tender, non-distended, no rebound or guarding, +BS EXTREMITY: no LE swelling or edema, extremities are warm and well-perfused NEURO: could not assess as patient is altered MUSC: good muscle tone, could not assess strength as patient is altered. SKIN: warm and dry Laboratory Results: Last 24 Hours Test 07/01/16 06:55 White Blood Count 3.90 K/uL Red Blood Count 4.11 M/uL Hemoglobin 12.8 g/dL Hematocrit 38.0 % Mean Corpuscular Volume 92.5 fL Mean Corpuscular Hemoglobin 31.1 pg Mean Corpuscular Hemoglobin Concent 33.7 g/dl Platelet Count 207 K/uL Mean Platelet Volume 9.9 fL Neutrophils (%) (Auto) 42.5 % Lymphocytes (%) (Auto) 34.9 % Monocytes (%) (Auto) 21.5 % Eosinophils (%) (Auto) 0.8 % Basophils (%) (Auto) 0.3 % Neutrophils # (Auto) 1.66 K/uL Lymphocytes # (Auto) 1.36 K/uL Monocytes # (Auto) 0.84 K/uL Eosinophils # (Auto) 0.03 K/uL Basophils # (Auto) 0.01 K/uL RDW Standard Deviation 45.4 fL RDW Coefficient of Variation 13.5 % Immature Granulocyte % (Auto) 0.0 % Immature Granulocyte # (Auto) 0.00 K/uL Prothrombin Time 32.1 SECONDS Prothromb Time International Ratio 2.9 Sodium Level 143 mmol/L Potassium Level 4.0 mmol/L Chloride Level 105 mmol/L Carbon Dioxide Level 29 mmol/L Anion Gap 9.0 mmol/L Blood Urea Nitrogen 10 mg/dl Creatinine 0.86 mg/dl Est Creatinine Clear Calc Drug Dose 44.3 ml/min Estimated GFR () 73.4 Estimated GFR (Non- 63.4 BUN/Creatinine Ratio 11.5 Random Glucose 123 mg/dl Calcium Level 8.3 mg/dl Assessment & Plan 81 year old female with history of Dementia, PE on coumadin, presenting with altered mental status ALTERED MENTAL STATUS LIKELY ENCEPHALOPATHY FROM POSSIBLE BILATERAL PNEUMONIA, R/O ASPIRATION and UTI - blood culture: negative urine culture: donnelly sens E coli - T max 100.4 overnight per daughter in law chato, patient not yet at baseline mental status, usually more awake, pleasant - continue empiric Zosyn IV for now ff up cultures IV fluids added for poor oral intake yesterday, however, doing well today so will stop these now. - Speech Therapy evaluated patient, recommendations: 1. Puree diet with thin liquids -straws ok 2. Pt. must be fed-verbally alert pt, then present food to bottom lip to encourage pt. to accept as she does not open her eyes often. 3. Continue to crush meds and place in carrier (pudding) 4. PUBLICATION EDITOR will continue to monitor in EMR however no direct treatment planned unless change in status warrants. ABDOMINAL PAIN Senokot S ordered for constipation yesterday and had multiple BMs no signs of abdominal pain or discomfort will change to PRN AMBULATORY DYSFUNCTION-PT/OT to evaluate. Will contact family to find out baseline functional status. HISTORY OF PE - INR 2.9 today - continue coumadin - INR daily DVT prophylaxis Coumadin Disposition pending management of pneumonia and UTI as noted [facility] Current Inpatient Medications: Current Inpatient Medications Medications (Trade) Dose Ordered Sig/Ashkan Route Start Time Stop Time Status Last Admin Dose Admin Acetaminophen (Tylenol Tab) 650 mg Q4H PRN PO 06/29/16 00:45 07/29/16 00:44 06/30/16 23:56 650 MG Risperidone (Risperdal Tab) 0.5 mg HS PO 06/29/16 21:00 07/29/16 20:59 06/30/16 20:42 0.5 MG Venlafaxine HCl (effeXOR EXTENDED REL CAP) 150 mg DAILY PO 06/29/16 08:00 07/29/16 08:59 07/01/16 07:56 150 MG Vitamin B Complex (Vitamin B Complex) 2 tab DAILY PO 06/29/16 08:00 07/29/16 07:59 07/01/16 07:56 2 TAB Polyethylene (Miralax Powder Packet) 17 gm QAM PO 06/29/16 08:00 07/29/16 07:59 07/01/16 07:55 17 GM Senna/Docusate Sodium (Senokot S Tab) 1 tab BID PO 06/29/16 08:00 07/29/16 08:59 07/01/16 07:55 1 TAB Piperacillin Sod/ Tazobactam Sod (Consult) 1 ea UD PRN N/A 06/29/16 01:15 07/29/16 01:14 Ondansetron HCl (Zofran Inj) 4 mg Q6H PRN IV 06/29/16 00:45 07/29/16 00:44 Haloperidol (Haldol Tab) 2 mg Q4H PRN PO 06/29/16 00:45 07/29/16 00:44 Haloperidol Lactate (Haldol Inj) 2 mg Q2H PRN IM 06/29/16 00:45 07/29/16 00:44 Albuterol/ Ipratropium 3 ml 3 ml Q2H PRN INH 06/29/16 01:00 07/29/16 00:59 Piperacillin Sod/ Tazobactam Sod/ Dextrose (Zosyn Iv/D5 100ml) 115 ml @ 28.75 mls/ hr Q8H IV 06/29/16 06:00 07/06/16 05:59 07/01/16 12:36 28.75 MLS/HR Warfarin Sodium (Coumadin Tab) 4 mg SuTuWeFrSa@1600 PO 06/29/16 16:00 07/29/16 15:59 07/01/16 15:43 4 MG Warfarin Sodium (Coumadin Tab) 1 mg MoTh@1600 PO 06/30/16 16:00 07/30/16 15:59 06/30/16 17:08 1 MG Warfarin Sodium 0.5 mg 0.5 mg MoTh@1600 PO 06/30/16 16:00 07/30/16 15:59 06/30/16 17:08 0.5 MG Potassium Chloride/Dextrose/ Sod Cl (D5nss + 20meq KCl) 1,000 ml @ 60 mls/hr [id number] IV 06/30/16 19:00 07/30/16 18:59 07/01/16 12:36 60 MLS/HR
[2016-07-01] MEDS: RISPERIDONE 0.5 MG TAB PO SCH (21:24)
[2016-07-01 23:27] VITALS: BP 148/85; PULSE 86; TEMP 38.1; O2SAT 94
[2016-07-02 02:28] VITALS: TEMP 37.9
[2016-07-02] MEDS ORDERED: ACETAMINOPHEN 650 MG SUPP PR PRN (02:45)
[2016-07-02 03:24] VITALS: TEMP 37.3
[2016-07-02] MEDS: PIPERACILL/TAZOBAC IV 3.375 GM in DEXTROSE 5% 100ML IV SCH ×3 (05:27→21:56)
[2016-07-02 07:07] LABS: BASO % 0.5 %; BASO ABS # 0.02 K/uL (0-0.2); COMPLETE YES; EOS % 0.5 %; HEMATOCRIT 39.2 % (37-47); LYMPH % 34.6 %; LYMPH ABS # 1.37 K/uL (1.2-3.4); MEAN CELL VOLUME 91.4 fL (80-100); MEAN CORPUSCULAR HGB CONC 33.9 g/dl (32-36); MEAN PLATELET VOLUME 10.1 fL (7.4-10.4); MONO % 17.4 %; PLATELET COUNT 209 K/uL (130-400); RED BLOOD COUNT 4.29 M/uL (4.2-5.4); WHITE BLOOD COUNT 3.96 K/uL (4.8-10.8)
[2016-07-02 07:39] VITALS: BP 132/76; PULSE 83; TEMP 36.6; O2SAT 92
[2016-07-02 07:46] LABS: CREATININE 0.73 mg/dl (0.60-1.20)
[2016-07-02] MEDS: VENLAFAXINE HCL XR 150 MG CAPXR PO SCH (08:05)
[2016-07-02] MEDS: VITAMIN B COMPLEX TAB PO SCH (08:05)
[2016-07-02 10:04] LABS: INR 2.5 (0.9-1.1); PROTHROMBIN TIME (PATIENT) 28.1 SECONDS (9.0-12.0)
[2016-07-02] MEDS ORDERED: VANCOMYCIN CONSULT ACTIVE PRN (12:00)
[2016-07-02 12:11] LABS: INFLUENZA B PCR Neg for Influ B (NEG)
[2016-07-02 12:14] LABS: INFLUENZA A PCR POS for Influ A (NEG)
[2016-07-02] MEDS ORDERED: VANCOMYCIN INJ 1,500 MG in SODIUM CHLORIDE 0.9% 500ML 500 ML IV ONE (12:30)
[2016-07-02] MEDS ORDERED: OSELTAMIVIR PHOSPHATE SUSP 30 MG/5 ML UDP PO ONE (13:30)
[2016-07-02 16:07] VITALS: BP 110/70; PULSE 87; TEMP 36.6; O2SAT 94
[2016-07-02] MEDS: WARFARIN SOD 4 MG TAB PO SCH (16:49)
[2016-07-02 19:42] VITALS: O2SAT 94
[2016-07-02] MEDS: RISPERIDONE 0.5 MG TAB PO SCH (21:57)
[2016-07-02] MEDS: OSELTAMIVIR PHOSPHATE SUSP 30 MG/5 ML UDP PO SCH (21:57)
[2016-07-02 23:15] VITALS: BP 122/72; PULSE 80; TEMP 36.9; O2SAT 94
--- NOTE | 2016-07-02 23:39 | Progress Note ---
Medicine Progress Note Date & Time of Visit: Jul 02, 2016 at 18:16. Subjective Cannot obtain ROS as patient is altered. Worked with PT today Flu checked and positive Started Tamiflu Spoke with family who are aware of this development Objective Last 8 Hrs Date Time Temp Pulse Resp B/P Pulse Ox O2 Delivery O2 Flow Rate FiO2 07/02/16 16:07 36.6 87 16 110/70 94 Room Air Physical Exam: GEN: WNWD, in no acute distress, alert and disoriented, cannot follow instructions HEENT: NC/AT, normal sclerae CARDIO: reg rate, S1/2 heard without m/g/r LUNGS: CTA bilaterally, no crackles, rales or wheezes, good diaphragmatic excursion. VERY Limited exam as patient cannot sit forward or follow instruction to take deep breaths, essentially stops breathing when I place stethoscope to chest. ABD: soft, non-tender, non-distended, no rebound or guarding, +BS EXTREMITY: no LE swelling or edema, extremities are warm and well-perfused NEURO: could not assess as patient is altered MUSC: good muscle tone, could not assess strength as patient is altered. SKIN: warm and dry Laboratory Results: Last 24 Hours Test 07/02/16 06:10 07/02/16 09:08 07/02/16 10:00 White Blood Count 3.96 K/uL Red Blood Count 4.29 M/uL Hemoglobin 13.3 g/dL Hematocrit 39.2 % Mean Corpuscular Volume 91.4 fL Mean Corpuscular Hemoglobin 31.0 pg Mean Corpuscular Hemoglobin Concent 33.9 g/dl Platelet Count 209 K/uL Mean Platelet Volume 10.1 fL Neutrophils (%) (Auto) 47.0 % Lymphocytes (%) (Auto) 34.6 % Monocytes (%) (Auto) 17.4 % Eosinophils (%) (Auto) 0.5 % Basophils (%) (Auto) 0.5 % Neutrophils # (Auto) 1.86 K/uL Lymphocytes # (Auto) 1.37 K/uL Monocytes # (Auto) 0.69 K/uL Eosinophils # (Auto) 0.02 K/uL Basophils # (Auto) 0.02 K/uL RDW Standard Deviation 44.4 fL RDW Coefficient of Variation 13.3 % Immature Granulocyte % (Auto) 0.0 % Immature Granulocyte # (Auto) 0.00 K/uL Creatinine 0.73 mg/dl Est Creatinine Clear Calc Drug Dose 52.2 ml/min Estimated GFR () 89.5 Estimated GFR (Non- 77.2 Prothrombin Time 28.1 SECONDS Prothromb Time International Ratio 2.5 Influenza Type A (RT-PCR) POS for Influ A Influenza Type B (RT-PCR) Neg for Influ B Date/Time Source Procedure Growth Status 07/02/16 10:30 Blood Blood Culture Pending Received 07/02/16 10:25 Blood Blood Culture Pending Received 07/02/16 10:00 Nasal MRSA DNA Surveillance Screen - Final Specimen Negative for MRSA by DNA Probe Complete Assessment & Plan 81 year old female with history of Dementia, PE on coumadin, presenting with altered mental status Encephalopathy 2/2 influenza with possible superimposed pneumonia vs aspiration pneumonitis and UTI in setting of chronic dementia -per family she is at her baseline mental status Influenza A-Tamiflu started today, droplet precautions, family advised. - T max 37.9 overnight, cont supportive care. HCAP vs aspiration pneumonitis with h/o vomiting last week - blood culture: negative - continue empiric Zosyn IV for now - Speech Therapy evaluated patient, recommendations: 1. Puree diet with thin liquids -straws ok 2. Pt. must be fed-verbally alert pt, then present food to bottom lip to encourage pt. to accept as she does not open her eyes often. 3. Continue to crush meds and place in carrier (pudding) 4. PLANT GUIDE will continue to monitor in EMR however no direct treatment planned unless change in status warrants. E coli UTI: urine culture: donnelly sens E coli Abdominal pain-appears resolved Senokot S ordered for constipation 06/30 and had multiple BMs no signs of abdominal pain or discomfort will change to PRN AMBULATORY DYSFUNCTION-PT/OT to evaluate. Return to [facility] when medically stable. HISTORY OF PE - INR 2.5 today - continue coumadin - INR daily DVT prophylaxis Coumadin Disposition: resident of [facility]; return once afebrile and tolerating PO. Family to check rules of returning flu positive. Urszula Sharp DO [facility] Hospitalist Current Inpatient Medications: Current Inpatient Medications Medications (Trade) Dose Ordered Sig/Ashkan Route Start Time Stop Time Status Last Admin Dose Admin Acetaminophen (Tylenol Tab) 650 mg Q4H PRN PO 06/29/16 00:45 07/29/16 00:44 06/30/16 23:56 650 MG Risperidone (Risperdal Tab) 0.5 mg HS PO 06/29/16 21:00 07/29/16 20:59 07/01/16 21:24 0.5 MG Venlafaxine HCl (effeXOR EXTENDED REL CAP) 150 mg DAILY PO 06/29/16 08:00 07/29/16 08:59 07/02/16 08:05 150 MG Vitamin B Complex (Vitamin B Complex) 2 tab DAILY PO 06/29/16 08:00 07/29/16 07:59 07/02/16 08:05 2 TAB Piperacillin Sod/ Tazobactam Sod (Consult) 1 ea UD PRN N/A 06/29/16 01:15 07/29/16 01:14 Ondansetron HCl (Zofran Inj) 4 mg Q6H PRN IV 06/29/16 00:45 07/29/16 00:44 Haloperidol (Haldol Tab) 2 mg Q4H PRN PO 06/29/16 00:45 07/29/16 00:44 Haloperidol Lactate (Haldol Inj) 2 mg Q2H PRN IM 06/29/16 00:45 07/29/16 00:44 Albuterol/ Ipratropium 3 ml 3 ml Q2H PRN INH 06/29/16 01:00 07/29/16 00:59 Piperacillin Sod/ Tazobactam Sod/ Dextrose (Zosyn Iv/D5 100ml) 115 ml @ 28.75 mls/ hr Q8H IV 06/29/16 06:00 07/06/16 05:59 07/02/16 13:58 28.75 MLS/HR Warfarin Sodium (Coumadin Tab) 4 mg SuTuWeFrSa@1600 PO 06/29/16 16:00 07/29/16 15:59 07/02/16 16:49 4 MG Warfarin Sodium (Coumadin Tab) 1 mg MoTh@1600 PO 06/30/16 16:00 07/30/16 15:59 06/30/16 17:08 1 MG Warfarin Sodium (Coumadin Tab) 0.5 mg MoTh@1600 PO 06/30/16 16:00 07/30/16 15:59 06/30/16 17:08 0.5 MG Senna/Docusate Sodium (Senokot S Tab) 1 tab BID PRN PO 07/01/16 16:30 07/31/16 16:29 Polyethylene (Miralax Powder Packet) 17 gm QAM PRN PO 07/01/16 16:30 07/31/16 16:29 Acetaminophen (Tylenol Supp) 650 mg Q4H PRN ND 07/02/16 02:45 08/01/16 02:44 Oseltamivir Phosphate (Tamiflu Susp) 30 mg BID PO 07/02/16 20:00 07/07/16 07:59
[2016-07-03] VITALS: O2SAT 94
[2016-07-03] MEDS: PIPERACILL/TAZOBAC IV 3.375 GM in DEXTROSE 5% 100ML IV SCH (05:03)
[2016-07-03 06:45] LABS: BASO % 0.3 %; BASO ABS # 0.01 K/uL (0-0.2); COMPLETE YES; EOS % 2.3 %; IG% 0.3 %; LYMPH % 40.9 %; LYMPH ABS # 1.62 K/uL (1.2-3.4); MEAN CELL VOLUME 91.6 fL (80-100); MEAN CORPUSCULAR HGB CONC 33.9 g/dl (32-36); MONO % 16.7 %; NEUT % 39.5 %; PLATELET COUNT 213 K/uL (130-400); RED BLOOD COUNT 3.93 M/uL (4.2-5.4); WHITE BLOOD COUNT 3.96 K/uL (4.8-10.8)
[2016-07-03 06:53] LABS: INR 2.3 (0.9-1.1); PROTHROMBIN TIME (PATIENT) 25.3 SECONDS (9.0-12.0)
[2016-07-03 07:13] LABS: BUN/CREATININE RATIO 15.5 (10-20); CALCIUM 8.3 mg/dl (8.5-10.1); CREATININE 0.7 mg/dl (0.60-1.20); POTASSIUM 3.9 mmol/L (3.5-5.1)
[2016-07-03 07:32] VITALS: BP 129/90; PULSE 79; TEMP 36.5; O2SAT 100
[2016-07-03] MEDS: VENLAFAXINE HCL XR 150 MG CAPXR PO SCH (07:54)
[2016-07-03] MEDS: VITAMIN B COMPLEX TAB PO SCH (07:54)
[2016-07-03] MEDS: OSELTAMIVIR PHOSPHATE SUSP 30 MG/5 ML UDP PO SCH ×2 (07:59→20:32)
--- NOTE | 2016-07-03 10:53 | Clinical Documentation Query ---
CLINICAL DOCUMENTATION QUERY Dr. HERRMANN, Please Document Present on Admission Status for Influenza: ( ) Influenza POA ( ) Influenza not POA Thank You, Sarah Hillman, RN [phone]
[2016-07-03] MEDS ORDERED: PIPERACILL/TAZOBAC IV 4.5 GM in DEXTROSE 5% 100ML IV SCH (14:00)
[2016-07-03 14:50] VITALS: BP 123/79; PULSE 75; TEMP 36.6; O2SAT 100
[2016-07-03] MEDS: WARFARIN SOD 0.5 MG TAB PO SCH (16:11)
[2016-07-03] MEDS: WARFARIN SOD 1 MG TAB PO SCH (16:11)
[2016-07-03] MEDS: RISPERIDONE 0.5 MG TAB PO SCH (20:32)
--- NOTE | 2016-07-03 21:02 | Progress Note ---
Medicine Progress Note Date & Time of Visit: Jul 03, 2016 at 18:16. Subjective ROS could not be obtained as patient is demented and confabulates at baseline Her son is present at the bedside and states that his mom looks the same as she always does She is eating well and walked out into the hallway with therapy yesterday Appears back to her baseline, and she defervesced without fever in the last 24 hours. She is also hemodynamically stable and has not been coughing at all per son. Objective Last 8 Hrs Date Time Temp Pulse Resp B/P Pulse Ox O2 Delivery O2 Flow Rate FiO2 07/03/16 17:20 Room Air 07/03/16 14:50 36.6 75 20 123/79 100 Physical Exam: GEN: WNWD, in no acute distress, alert and disoriented, cannot follow instructions HEENT: NC/AT, normal sclerae CARDIO: reg rate, S1/2 heard without m/g/r LUNGS: CTA bilaterally, no crackles, rales or wheezes, good diaphragmatic excursion. VERY Limited exam as patient cannot sit forward or follow instruction to take deep breaths, essentially stops breathing when I place stethoscope to chest. ABD: soft, non-tender, non-distended, no rebound or guarding, +BS EXTREMITY: no LE swelling or edema, extremities are warm and well-perfused NEURO: could not assess as patient is altered MUSC: good muscle tone, could not assess strength as patient is altered. SKIN: warm and dry Laboratory Results: Last 24 Hours Test 07/03/16 05:44 White Blood Count 3.96 K/uL Red Blood Count 3.93 M/uL Hemoglobin 12.2 g/dL Hematocrit 36.0 % Mean Corpuscular Volume 91.6 fL Mean Corpuscular Hemoglobin 31.0 pg Mean Corpuscular Hemoglobin Concent 33.9 g/dl Platelet Count 213 K/uL Mean Platelet Volume 10.0 fL Neutrophils (%) (Auto) 39.5 % Lymphocytes (%) (Auto) 40.9 % Monocytes (%) (Auto) 16.7 % Eosinophils (%) (Auto) 2.3 % Basophils (%) (Auto) 0.3 % Neutrophils # (Auto) 1.57 K/uL Lymphocytes # (Auto) 1.62 K/uL Monocytes # (Auto) 0.66 K/uL Eosinophils # (Auto) 0.09 K/uL Basophils # (Auto) 0.01 K/uL RDW Standard Deviation 44.3 fL RDW Coefficient of Variation 13.2 % Immature Granulocyte % (Auto) 0.3 % Immature Granulocyte # (Auto) 0.01 K/uL Prothrombin Time 25.3 SECONDS Prothromb Time International Ratio 2.3 Sodium Level 142 mmol/L Potassium Level 3.9 mmol/L Chloride Level 106 mmol/L Carbon Dioxide Level 27 mmol/L Anion Gap 9.0 mmol/L Blood Urea Nitrogen 11 mg/dl Creatinine 0.70 mg/dl Est Creatinine Clear Calc Drug Dose 54.4 ml/min Estimated GFR () 94.2 Estimated GFR (Non- 81.3 BUN/Creatinine Ratio 15.5 Random Glucose 92 mg/dl Calcium Level 8.3 mg/dl Assessment & Plan 81 year old female with history of Dementia, PE on coumadin, presenting with altered mental status and fever after a [facility], found to have UTI, pneumonia and is flu positive Encephalopathy 2/2 influenza with possible superimposed pneumonia vs aspiration pneumonitis and UTI in setting of chronic dementia -per family she is at her baseline mental status Influenza A-Tamiflu started today, droplet precautions, family advised. - afebrile overnight, cont supportive care. HCAP vs aspiration pneumonitis with h/o vomiting last week - blood culture: negative - switch to Augmentin PO - Speech Therapy evaluated patient, recommendations: 1. Puree diet with thin liquids -straws ok 2. Pt. must be fed-verbally alert pt, then present food to bottom lip to encourage pt. to accept as she does not open her eyes often. 3. Continue to crush meds and place in carrier (pudding) 4. DIRECTOR OF FIELD SALES will continue to monitor in EMR however no direct treatment planned unless change in status warrants. E coli UTI: urine culture: donnelly sens E coli. Covered by abx as above Abdominal pain-appears resolved Senokot S ordered for constipation 06/30 and had multiple BMs no signs of abdominal pain or discomfort will change to PRN AMBULATORY DYSFUNCTION-PT/OT to evaluate. Ambulates at baseline with a walker. Return to [facility] when medically stable. HISTORY OF PE - INR 2.5 today - continue coumadin - INR daily DVT prophylaxis Coumadin Disposition: plan to DC to [facility] tomorrow afternoon Urszula Sharp DO [facility] Hospitalist Current Inpatient Medications: Current Inpatient Medications Medications (Trade) Dose Ordered Sig/Ashkan Route Start Time Stop Time Status Last Admin Dose Admin Acetaminophen (Tylenol Tab) 650 mg Q4H PRN PO 06/29/16 00:45 07/29/16 00:44 06/30/16 23:56 650 MG Risperidone (Risperdal Tab) 0.5 mg HS PO 06/29/16 21:00 07/29/16 20:59 07/02/16 21:57 0.5 MG Venlafaxine HCl (effeXOR EXTENDED REL CAP) 150 mg DAILY PO 06/29/16 08:00 07/29/16 08:59 07/03/16 07:54 150 MG Vitamin B Complex (Vitamin B Complex) 2 tab DAILY PO 06/29/16 08:00 07/29/16 07:59 07/03/16 07:54 2 TAB Piperacillin Sod/ Tazobactam Sod (Consult) 1 ea UD PRN N/A 06/29/16 01:15 07/29/16 01:14 Ondansetron HCl (Zofran Inj) 4 mg Q6H PRN IV 06/29/16 00:45 07/29/16 00:44 Haloperidol (Haldol Tab) 2 mg Q4H PRN PO 06/29/16 00:45 07/29/16 00:44 Haloperidol Lactate (Haldol Inj) 2 mg Q2H PRN IM 06/29/16 00:45 07/29/16 00:44 Albuterol/ Ipratropium (Duoneb) 3 ml Q2H PRN INH 06/29/16 01:00 07/29/16 00:59 Warfarin Sodium (Coumadin Tab) 4 mg SuTuWeFrSa@1600 PO 06/29/16 16:00 07/29/16 15:59 07/02/16 16:49 4 MG Warfarin Sodium (Coumadin Tab) 1 mg MoTh@1600 PO 06/30/16 16:00 07/30/16 15:59 07/03/16 16:11 1 MG Warfarin Sodium (Coumadin Tab) 0.5 mg MoTh@1600 PO 06/30/16 16:00 07/30/16 15:59 07/03/16 16:11 0.5 MG Senna/Docusate Sodium (Senokot S Tab) 1 tab BID PRN PO 07/01/16 16:30 07/31/16 16:29 Polyethylene (Miralax Powder Packet) 17 gm QAM PRN PO 07/01/16 16:30 07/31/16 16:29 Acetaminophen (Tylenol Supp) 650 mg Q4H PRN NM 07/02/16 02:45 08/01/16 02:44 Oseltamivir Phosphate 30 mg 30 mg BID PO 07/02/16 20:00 07/07/16 07:59 07/03/16 07:59 30 MG Piperacillin Sod/ Tazobactam Sod/ Dextrose (Zosyn Iv/D5 100ml) 120 ml @ 30 mls/hr Q8H IV 07/03/16 14:00 07/06/16 13:59 07/03/16 13:42 30 MLS/HR
[2016-07-03] MEDS: AMOXICILLIN/CLAVULANATE TAB 875 MG TAB PO SCH (21:25)
[2016-07-04 00:20] VITALS: BP 114/76; PULSE 79; TEMP 36.9; O2SAT 95
[2016-07-04 07:28] VITALS: BP 111/67; PULSE 73; TEMP 36.4; O2SAT 94
[2016-07-04 08:45] VITALS: O2SAT 96
[2016-07-04] MEDS: AMOXICILLIN/CLAVULANATE TAB 875 MG TAB PO SCH ×2 (08:54→15:53)
[2016-07-04] MEDS: VENLAFAXINE HCL XR 150 MG CAPXR PO SCH (08:54)
[2016-07-04] MEDS: VITAMIN B COMPLEX TAB PO SCH (08:54)
[2016-07-04] MEDS: OSELTAMIVIR PHOSPHATE SUSP 30 MG/5 ML UDP PO SCH ×2 (08:58→15:54)
[2016-07-04 11:58] VITALS: BP 116/71; PULSE 82; TEMP 36.5; O2SAT 88; O2SAT 95
[2016-07-04 15:20] VITALS: BP 119/76; PULSE 79; TEMP 36.3; O2SAT 94
[2016-07-04] MEDS ORDERED: AMOX1TAB43 PO (15:26)
[2016-07-04] MEDS ORDERED: TMFUDL30 PO (15:26)
--- NOTE | 2016-07-04 15:32 | Discharge Instructions ---
Discharge Instructions Admission Reason for Admission: Encephalopathy Discharge Discharge Diagnosis / Problem: Dementia, Pnemonia, Influenza, UTI Discharge Goals Goal(s): Prevent Disease Progression Activity Recommendations Activity Limitations: resume your previous activity . Instructions / Follow-Up Instructions / Follow-Up Please take all medications as instructed. You will need a follow-up chest xray in 4-6 weeks to ensure complete resolution of pneumonia. You will need a primary care follow-up within 7 days of discharge to ensure you are doing well. It was a pleasure taking care of you! Call if you have any questions or problems. You can reach a [facility] hospitalist on duty at [facility] 24 hours a day by calling [phone]. Take care of yourself. Urszula Sharp DO [facility] Hospitalist Current Hospital Diet Patient's current hospital diet: AHA Diet (Heart Healthy) Discharge Diet Recommended Diet: AHA Diet (Heart Healthy) Diet Texture: Pureed (blended smooth) Pending Studies Studies pending at discharge: yes List of pending studies: Second set of blood cultures are negative (prelimiary read). Final read pending at discharge. Medical Emergencies . Who to Call and When: Medical Emergencies: If at any time you feel your situation is an emergency, please call 911 immediately. . Non-Emergent Contact Non-Emergency issues call your: Primary Care Provider . . "Provider Documentation" section prepared by Urszula Sharp. VTE Core Measure Inpt VTE Proph given/why not?: Warfarin (Coumadin)
[2016-07-04 15:36] VITALS: BP 119/76; PULSE 79; TEMP 36.3; O2SAT 94
[2016-07-04] MEDS: WARFARIN SOD 4 MG TAB PO SCH (15:53)
--- NOTE | 2016-07-10 06:16 | Discharge Summary ---
Discharge Summary Admission Date: Jun 28, 2016 at 23:50 Discharge Date: Jul 04, 2016 Discharge Disposition: Personal care Principal Diagnosis: Influenza A HCAP Acute Cystitis 2/2 E coli Secondary Diagnoses/Problems: Dementia h/o pulmonary embolism on anticoagulation HTN HLP Procedures: None. Vaccinations: None. Consultations: None. Pending Studies/Follow-Up: see instructions below Medication Reconciliation New Medications: Amoxicillin & Pot Clavulanate (Amoxicillin/Clavulanate P) 1 Tab Tab 875 MG PO BIDM for 3 Days, #6 TAB Oseltamivir Phosphate (Tamiflu) 6 Mg/Ml Ebonie 30 MG PO BID for 2 Days, #4 EA Continued Medications: Acetaminophen (Tylenol) 325 Mg Tab 325 MG PO Q4H PRN for Pain or Fever, TAB NEEDED FOR PAIN OR TEMPERATURE GREATER THAN 100 F. MAXIMUM OF 3 GRAMS IN 24 HOURS. B-Complex Vitamins (Vitamin B Complex) 1 Tab Tab 2 TABS PO DAILY VITAFUSION GUMMY CHEWABLE Enteral Nutrition Formula (Ensure) Liq 1 CAN PO TID BETWEEN MEALS Fiber (Fiber Select Gummies) 1 Chw Chw 2 TABS PO DAILY Melatonin (Melatonin) 5 Mg Tab 5 MG PO HS Polyethylene Glycol 3350 (Miralax) 1 Pow Pow 17 GM PO DAILY, GM MIX WITH 8 OUNCES OF FLUID Risperidone (Risperdal) 0.5 Mg Tab 0.5 MG PO HS, TAB Venlafaxine Hcl (Effexor Xr) 150 Mg Cap 150 MG PO DAILY, CAP Warfarin Sod (Jantoven) 2 Mg Tab 4 MG PO DIRECTED, TAB GIVE TWO TABLETS (4MG) EVERY THURSDAY, THURSDAY, THURSDAY, Thursday. Warfarin Sod (Jantoven) 2 Mg Tab 1.5 TABS PO DIRECTED, TAB GIVE 1.5 TABLETS EVERY THURSDAY AND THURSDAY Admission Information HPI (per Admitting provider): HISTORY OF PRESENT ILLNESS: Medical history significant for dementia, pulmonary embolism, on anticoagulation , hypertension, hyperlipidemia. Recent confinement last January 2016 for acute bilateral pulmonary embolism with RV strain. The patient discharged on Coumadin. Last few days, the patient looked tired, as per son; noted to be increasingly lethargic, not opening her eyes. Nonverbal. Normally, patient has her eyes open, is singing. Px co of achy L sided abd pain w/ nausea/emesis. Moist cough noted, episodic hypoxemia at the senior living. Temperature of 101 as per records. At the Emergency Room, the patient received IV ceftriaxone for UTI. Physical Exam (per Admitting): PHYSICAL EXAMINATION: VITAL SIGNS: Blood pressure was noted to be 147/76, pulse rate 100, RR 20, T 37 O2 sats 94 on room air. GENERAL: Noted to be demented.. No respiratory distress. Eyes closed. HEENT: pink palp conjunctivae, dry mucosa. NECK: Short neck. LUNGS: Decreased breath sounds, decreased effort. HEART: Regular rate and rhythm. ABDOMEN: Some tenderness on the left side. EXTREMITIES: No edema. no tenderness NEUROLOGIC: Demented. Hospital Course 81 year old female with history of Dementia, PE on coumadin, presenting with altered mental status and fever after a bout of nausea and vomiting last week at the senior living, found to have UTI, pneumonia and is flu positive Encephalopathy 2/2 influenza and other infections with possible superimposed pneumonia vs aspiration pneumonitis and UTI in setting of chronic dementia -for coding purposes this was most likely present on arrival as she fevered twice with no change in status until it was found and treated. -per family she is at her baseline mental status Influenza A-Tamiflu started today, droplet precautions, family advised. - afebrile overnight, cont supportive care. HCAP vs aspiration pneumonitis with h/o vomiting last week - blood culture: negative - switch to Augmentin PO - Speech Therapy evaluated patient, recommendations: 1. Puree diet with thin liquids -straws ok 2. Pt. must be fed-verbally alert pt, then present food to bottom lip to encourage pt. to accept as she does not open her eyes often. 3. Continue to crush meds and place in carrier (pudding) 4. RIBBON TIER will continue to monitor in EMR however no direct treatment planned unless change in status warrants. E coli UTI: urine culture: donnelly sens E coli. Covered by abx as above Abdominal pain-appears resolved Senokot S ordered for constipation 06/30 and had multiple BMs no signs of abdominal pain or discomfort changed to PRN AMBULATORY DYSFUNCTION-PT/OT to evaluate. Ambulates at baseline with a walker. Return to [facility] when medically stable. HISTORY OF PE -therapeutic, cont coumadin at current dosage and follow-up with Anticoag Clinic upon discharge On day of discharge she was afebrile and hemodynamically stable, ambulating at baseline and tolerating PO. Per family she appeared to be at baseline mental status. Physical exam was unremarkable, however, this was limited as she would not breathe for me when auscultating her lungs. She was discharged back to the nursing facility in good condition with recommended close follow-up with the on- site provider and the Anticoauglation Clinic. Total time spent on discharge = 60 minutes This includes examination of the patient, discharge planning, medication reconciliation, and communication with other providers. Discharge Instructions Discharge Instructions Admission Reason for Admission: Encephalopathy Discharge Discharge Diagnosis / Problem: Dementia, Pnemonia, Influenza, UTI Discharge Goals Goal(s): Prevent Disease Progression Activity Recommendations Activity Limitations: resume your previous activity . Instructions / Follow-Up Instructions / Follow-Up Please take all medications as instructed. You will need a follow-up chest xray in 4-6 weeks to ensure complete resolution of pneumonia. You will need a primary care follow-up within 7 days of discharge to ensure you are doing well. It was a pleasure taking care of you! Call if you have any questions or problems. You can reach a [facility] hospitalist on duty at [facility] 24 hours a day by calling [phone]. Take care of yourself. Urszula Sharp, DO [facility] Hospitalist Additional Copies To [facility]
== END 2016-07-04 16:20 | disposition home or self-care (01) | DRG 177 ==
LOC: ENRESERVTM → ENRESERVDT → C.EDA 19:05 → EDBD 19:05 → UNDOADMIN 23:50 → C.4E 23:50
PROVIDERS: ADMIT Internal Medicine; ATTEND Hospitalist
DX: J69.0 Pneumonitis due to inhalation of food and vomit (principal); G93.40 Encephalopathy, unspecified; N30.00 Acute cystitis without hematuria; J10.00 Influenza due to other identified influenza virus with unspecified type of pneumonia; J10.81 Influenza due to other identified influenza virus with encephalopathy; B96.20 Unspecified Escherichia coli [E. coli] as the cause of diseases classified elsewhere; K59.00 Constipation, unspecified; F03.90 Unspecified dementia, unspecified severity, without behavioral disturbance, psychotic disturbance, mood disturbance, and anxiety; R26.2 Difficulty in walking, not elsewhere classified; Z66 Do not resuscitate; Z86.711 Personal history of pulmonary embolism; Z79.01 Long term (current) use of anticoagulants; Z79.899 Other long term (current) drug therapy

== ENCOUNTER → 2016-07-09 | Outpatient (CLI) | payer OTHER, BC ==
[~2016-07-09] MED LIST changes: +AMOX1TAB43 PO; -CMD3 PO; -LVNIS60 SQ; +TMFUDL30 PO; +WARF2TAB8 PO
[2016-07-09 09:10] LABS: INR 3.3 (0.9-1.1); PROTHROMBIN TIME (PATIENT) 37.2 SECONDS (9.0-12.0)
--- NOTE | 2016-07-10 10:29 | CODING QUERY NO DIAGNOSIS ---
TREATMENT RENDERED WITHOUT A DIAGNOSIS 35 To promote full compliance with coding requirements relating to patient care, physician participation is requested in all cases of outpatient coder uncertainty. Please assist us with providing a diagnosis/symptom for the test(s) below: A diagnosis/symptom was not documented on your Order. A valid diagnosis/symptom is required to bill all insurances. Please remember that we are unable to code a diagnosis of rule out, probable, possible, questionable, or suspected. DOS 07/09/16 Tests that require a diagnosis: * PT/INR DIAGNOSIS: Provider Signature: Date: Thank you Yecenia Wing [facility] Information Management Once completed, please kindly fax back to [phone] For questions please call [phone]
== END | disposition home or self-care (01) ==
LOC: C.LABOUTLO 08:48
PROVIDERS: ATTEND Internal Medicine
DX: I26.99 Other pulmonary embolism without acute cor pulmonale (principal)

== ENCOUNTER → 2016-07-10 | Outpatient (CLI) | payer OTHER, BC ==
[2016-07-10 09:38] LABS: INR 3.1 (0.9-1.1)
--- NOTE | 2016-07-11 12:59 | CODING QUERY NO DIAGNOSIS ---
TREATMENT RENDERED WITHOUT A DIAGNOSIS 35 To promote full compliance with coding requirements relating to patient care, physician participation is requested in all cases of multi purpose machine operator uncertainty. Please assist us with providing a diagnosis/symptom for the test(s) below: A diagnosis/symptom was not documented on your Order. A valid diagnosis/symptom is required to bill all insurances. Please remember that we are unable to code a diagnosis of rule out, probable, possible, questionable, or suspected. DOS 07/10/16 Tests that require a diagnosis: * PT/INR DIAGNOSIS: Provider Signature: Date: Thank you Yecenia Wing [facility] Information Management Once completed, please kindly fax back to [phone] For questions please call [phone]
== END ==
LOC: C.LABOUTLO 08:59
PROVIDERS: ATTEND Internal Medicine
DX: I26.99 Other pulmonary embolism without acute cor pulmonale (principal)

== ENCOUNTER → 2016-07-11 | Outpatient (CLI) | payer OTHER, BC ==
[2016-07-11 10:18] LABS: INR 1.9 (0.9-1.1); PROTHROMBIN TIME (PATIENT) 21.2 SECONDS (9.0-12.0)
--- NOTE | 2016-07-18 10:07 | CODING QUERY NO DIAGNOSIS ---
TREATMENT RENDERED WITHOUT A DIAGNOSIS : 1935 To promote full compliance with coding requirements relating to patient care, physician participation is requested in all cases of telephone answerer uncertainty. Please assist us with providing a diagnosis/symptom for the test(s) below: A diagnosis/symptom was not documented on your Order. A valid diagnosis/symptom is required to bill all insurances. Please remember that we are unable to code a diagnosis of rule out, probable, possible, questionable, or suspected. DOS: 07/11/16 Tests that require a diagnosis: * PROTHROMBIN TIME PRO DIAGNOSIS: Provider Signature: Date: Thank you Portia Mills [employer] Information Management Once completed, please kindly fax back to [phone] For questions please call [phone]
== END | disposition home or self-care (01) ==
LOC: C.LABOUTLO 09:25
PROVIDERS: ATTEND Internal Medicine
DX: I26.99 Other pulmonary embolism without acute cor pulmonale (principal)

== ENCOUNTER → 2016-07-14 | Outpatient (CLI) | payer OTHER, BC ==
[2016-07-14 10:06] LABS: INR 1.7 (0.9-1.1); PROTHROMBIN TIME (PATIENT) 18.2 SECONDS (9.0-12.0)
--- NOTE | 2016-07-18 10:49 | CODING QUERY NO DIAGNOSIS ---
TREATMENT RENDERED WITHOUT A DIAGNOSIS : 1935 To promote full compliance with coding requirements relating to patient care, physician participation is requested in all cases of soil specialist uncertainty. Please assist us with providing a diagnosis/symptom for the test(s) below: A diagnosis/symptom was not documented on your Order. A valid diagnosis/symptom is required to bill all insurances. Please remember that we are unable to code a diagnosis of rule out, probable, possible, questionable, or suspected. DOS: 07/14/16 Tests that require a diagnosis: * PROTHROMBIN TIME PRO DIAGNOSIS: Provider Signature: Date: Thank you Portia Mills [employer] Information Management Once completed, please kindly fax back to [phone] For questions please call [phone]
== END | disposition home or self-care (01) ==
LOC: C.LABOUTLO 09:03
PROVIDERS: ATTEND Internal Medicine
DX: I26.99 Other pulmonary embolism without acute cor pulmonale (principal)

== ENCOUNTER → 2016-07-16 | Outpatient (CLI) | payer OTHER, BC ==
[2016-07-16 10:06] LABS: INR 1.9 (0.9-1.1); PROTHROMBIN TIME (PATIENT) 20.7 SECONDS (9.0-12.0)
--- NOTE | 2016-07-25 06:08 | CODING QUERY NO DIAGNOSIS ---
TREATMENT RENDERED WITHOUT A DIAGNOSIS : 1935 To promote full compliance with coding requirements relating to patient care, physician participation is requested in all cases of hotel guest service agent uncertainty. Please assist us with providing a diagnosis/symptom for the test(s) below: A diagnosis/symptom was not documented on your Order. A valid diagnosis/symptom is required to bill all insurances. Please remember that we are unable to code a diagnosis of rule out, probable, possible, questionable, or suspected. DOS: 07/16/16 Tests that require a diagnosis: * PROTHROMBIN TIME PRO DIAGNOSIS: Provider Signature: Date: Thank you Portia Mills [employer] Information Management Once completed, please kindly fax back to [phone] For questions please call [phone]
== END | disposition home or self-care (01) ==
LOC: C.LABOUTLO 09:05
PROVIDERS: ATTEND Internal Medicine
DX: I26.99 Other pulmonary embolism without acute cor pulmonale (principal)

== ENCOUNTER → 2016-07-18 | Outpatient (CLI) | payer OTHER, BC ==
[2016-07-18 09:44] LABS: INR 1.7 (0.9-1.1); PROTHROMBIN TIME (PATIENT) 18.7 SECONDS (9.0-12.0)
--- NOTE | 2016-07-21 08:28 | CODING QUERY NO DIAGNOSIS ---
TREATMENT RENDERED WITHOUT A DIAGNOSIS 35 To promote full compliance with coding requirements relating to patient care, physician participation is requested in all cases of hospital admissions officer uncertainty. Please assist us with providing a diagnosis/symptom for the test(s) below: A diagnosis/symptom was not documented on your Order. A valid diagnosis/symptom is required to bill all insurances. Please remember that we are unable to code a diagnosis of rule out, probable, possible, questionable, or suspected. DOS 07/18/16 Tests that require a diagnosis: * PT/INR DIAGNOSIS: Provider Signature: Date: Thank you Yecenia Wing Health Information Management Once completed, please kindly fax back to [phone] For questions please call [phone]
== END | disposition home or self-care (01) ==
LOC: C.LABOUTLO 09:21
PROVIDERS: ATTEND Internal Medicine
DX: I26.99 Other pulmonary embolism without acute cor pulmonale (principal)

== ENCOUNTER → 2016-07-22 | Outpatient (CLI) | payer OTHER, BC ==
[2016-07-22 10:27] LABS: INR 2.7 (0.9-1.1); PROTHROMBIN TIME (PATIENT) 30.1 SECONDS (9.0-12.0)
== END | disposition home or self-care (01) ==
LOC: C.LABOUTLO 09:35
PROVIDERS: ATTEND Internal Medicine
DX: I26.99 Other pulmonary embolism without acute cor pulmonale (principal)

== ENCOUNTER → 2016-07-29 | Outpatient (CLI) | payer OTHER, BC ==
[2016-07-29 10:01] LABS: INR 1.5 (0.9-1.1); PROTHROMBIN TIME (PATIENT) 15.8 SECONDS (9.0-12.0)
== END | disposition home or self-care (01) ==
LOC: C.LABOUTLO 09:13
PROVIDERS: ATTEND Internal Medicine
DX: I25.10 Atherosclerotic heart disease of native coronary artery without angina pectoris (principal)

== ENCOUNTER → 2016-08-07 | Outpatient (CLI) | payer OTHER, BC ==
[2016-08-07 10:14] LABS: INR 1.9 (0.9-1.1)
== END | disposition home or self-care (01) ==
LOC: C.LABOUTLO 09:24
PROVIDERS: ATTEND Internal Medicine
DX: I48.91 Unspecified atrial fibrillation (principal)

== ENCOUNTER → 2016-08-27 | Outpatient (CLI) | payer OTHER, BC ==
[2016-08-27 09:48] LABS: INR 1.4 (0.9-1.1); PROTHROMBIN TIME (PATIENT) 14.7 SECONDS (9.0-12.0)
== END | disposition home or self-care (01) ==
LOC: C.LABOUTLO 09:21
PROVIDERS: ATTEND Internal Medicine
DX: I48.91 Unspecified atrial fibrillation (principal)

== ENCOUNTER → 2016-09-01 | Outpatient (CLI) | payer OTHER, BC ==
[2016-09-01 08:56] LABS: INR 2.1 (0.9-1.1); PROTHROMBIN TIME (PATIENT) 23.3 SECONDS (9.0-12.0)
== END | disposition home or self-care (01) ==
LOC: C.LABOUTLO 08:32
PROVIDERS: ATTEND Internal Medicine
DX: I48.91 Unspecified atrial fibrillation (principal)

== ENCOUNTER → 2016-09-04 | Outpatient (CLI) | payer OTHER, BC ==
[2016-09-04 10:32] LABS: INR 2.1 (0.9-1.1); PROTHROMBIN TIME (PATIENT) 23.1 SECONDS (9.0-12.0)
== END ==
LOC: C.LABOUTLO 09:08
PROVIDERS: ATTEND Internal Medicine
DX: I48.91 Unspecified atrial fibrillation (principal)

== ENCOUNTER → 2016-09-09 | Outpatient (CLI) | payer OTHER, BC ==
[2016-09-09 18:38] LABS: URINE APPEARANCE CLEAR (CLEAR); URINE BILIRUBIN NEG (NEG); URINE COLOR YELLOW; URINE NITRITE NEG (NEG); URINE PH 5.5 (4.5-7.5); URINE SPECIFIC GRAVITY 1.019 (1.000-1.030); UROBILINOGEN NEG (NEG)
[2016-09-09 18:44] LABS: MANUAL MICROSCOPIC REQUIRED? NO; REVIEW REQ? NO
== END | disposition home or self-care (01) ==
LOC: C.LABOUTLO 17:24
PROVIDERS: ATTEND Internal Medicine
DX: N39.0 Urinary tract infection, site not specified (principal)

== ENCOUNTER → 2016-09-17 | Outpatient (CLI) | payer OTHER, BC ==
[2016-09-17 09:28] LABS: PROTHROMBIN TIME (PATIENT) 41.9 SECONDS (9.0-12.0)
[2016-09-17 10:24] LABS: INR 3.7 (0.9-1.1)
== END ==
LOC: C.LABOUTLO 08:38
PROVIDERS: ATTEND Internal Medicine
DX: I48.91 Unspecified atrial fibrillation (principal)

== ENCOUNTER → 2016-09-18 | Outpatient (CLI) | payer OTHER, BC ==
[2016-09-18 10:06] LABS: PROTHROMBIN TIME (PATIENT) 42.3 SECONDS (9.0-12.0)
[2016-09-18 10:19] LABS: INR 3.7 (0.9-1.1)
== END ==
LOC: C.LABOUTLO 09:44
PROVIDERS: ATTEND Internal Medicine
DX: I48.91 Unspecified atrial fibrillation (principal)

== ENCOUNTER → 2016-09-23 | Outpatient (CLI) | payer OTHER, BC ==
[2016-09-23 10:09] LABS: INR 1.5 (0.9-1.1); PROTHROMBIN TIME (PATIENT) 15.8 SECONDS (9.0-12.0)
== END | disposition home or self-care (01) ==
LOC: C.LABOUTLO 09:47
PROVIDERS: ATTEND Internal Medicine
DX: I48.91 Unspecified atrial fibrillation (principal)

== ENCOUNTER → 2016-10-06 | Outpatient (CLI) | payer OTHER, BC ==
[2016-10-06 11:37] LABS: INR 1.4 (0.9-1.1); PROTHROMBIN TIME (PATIENT) 15.7 SECONDS (9.0-12.0)
== END ==
LOC: C.LABOUTLO 10:28
PROVIDERS: ATTEND Internal Medicine
DX: I48.91 Unspecified atrial fibrillation (principal)

== ENCOUNTER → 2016-10-10 | Outpatient (CLI) | payer OTHER, BC ==
[2016-10-10 12:14] LABS: INR 2.4 (0.9-1.1); PROTHROMBIN TIME (PATIENT) 26.1 SECONDS (9.0-12.0)
== END | disposition home or self-care (01) ==
LOC: C.LABOUTLO 11:40
PROVIDERS: ATTEND Internal Medicine
DX: I48.91 Unspecified atrial fibrillation (principal)

== ENCOUNTER → 2016-10-23 | Outpatient (CLI) | payer OTHER, BC ==
[2016-10-23 09:48] LABS: INR 2.7 (0.9-1.1); PROTHROMBIN TIME (PATIENT) 29.6 SECONDS (9.0-12.0)
== END | disposition home or self-care (01) ==
LOC: C.LABOUTLO 08:52
PROVIDERS: ATTEND Internal Medicine
DX: I48.91 Unspecified atrial fibrillation (principal)

== ENCOUNTER → 2016-11-06 | Outpatient (CLI) | payer OTHER, BC ==
[2016-11-06 10:56] LABS: INR 1.2 (0.9-1.1); PROTHROMBIN TIME (PATIENT) 12.9 SECONDS (9.0-12.0)
== END | disposition home or self-care (01) ==
LOC: C.LABOUTLO 10:00
PROVIDERS: ATTEND Internal Medicine
DX: I48.91 Unspecified atrial fibrillation (principal)

== ENCOUNTER → 2016-11-11 | Outpatient (CLI) | payer OTHER, BC ==
[2016-11-11 09:54] LABS: INR 1.4 (0.9-1.1); PROTHROMBIN TIME (PATIENT) 15.2 SECONDS (9.0-12.0)
== END | disposition home or self-care (01) ==
LOC: C.LABOUTLO 09:31
PROVIDERS: ATTEND Internal Medicine
DX: I48.91 Unspecified atrial fibrillation (principal)

== ENCOUNTER → 2016-11-18 | Outpatient (CLI) | payer OTHER, BC ==
[2016-11-18 11:05] LABS: INR 3.3 (0.9-1.1); PROTHROMBIN TIME (PATIENT) 36.8 SECONDS (9.0-12.0)
== END | disposition home or self-care (01) ==
LOC: C.LABOUTLO 09:24
PROVIDERS: ATTEND Internal Medicine
DX: I48.91 Unspecified atrial fibrillation (principal)

== ENCOUNTER → 2016-11-21 | Outpatient (CLI) | payer OTHER, BC ==
[2016-11-21 10:38] LABS: INR 2.3 (0.9-1.1); PROTHROMBIN TIME (PATIENT) 25.3 SECONDS (9.0-12.0)
== END | disposition home or self-care (01) ==
LOC: C.LABOUTLO 09:02
PROVIDERS: ATTEND Internal Medicine
DX: I48.91 Unspecified atrial fibrillation (principal)

== ENCOUNTER → 2016-12-11 | Outpatient (CLI) | payer OTHER, BC ==
[2016-12-11 09:28] LABS: INR 2.3 (0.9-1.1); PROTHROMBIN TIME (PATIENT) 25.6 SECONDS (9.0-12.0)
== END | disposition home or self-care (01) ==
LOC: C.LABOUTLO 08:15
PROVIDERS: ATTEND Internal Medicine
DX: I48.91 Unspecified atrial fibrillation (principal)

== ENCOUNTER → 2017-01-01 | Outpatient (CLI) | payer OTHER, BC ==
[2017-01-01 09:44] LABS: INR 2.1 (0.9-1.1); PROTHROMBIN TIME (PATIENT) 22.8 SECONDS (9.0-12.0)
== END | disposition home or self-care (01) ==
LOC: C.LABOUTLO 09:00
PROVIDERS: ATTEND Internal Medicine
DX: Z51.81 Encounter for therapeutic drug level monitoring (principal); Z79.01 Long term (current) use of anticoagulants; I48.91 Unspecified atrial fibrillation

== ENCOUNTER → 2017-01-21 | Outpatient (CLI) | payer OTHER, BC ==
[2017-01-21 09:16] LABS: INR 2.9 (0.9-1.1)
--- NOTE | 2017-01-27 17:11 | CODING QUERY NO DIAGNOSIS ---
TREATMENT RENDERED WITHOUT A DIAGNOSIS To promote full compliance with coding requirements relating to patient care, physician participation is requested in all cases of bilingual research interviewer uncertainty. Please assist us with providing a diagnosis/symptom for the test(s) below: A diagnosis/symptom was not documented on your Order. A valid diagnosis/symptom is required to bill all insurances. Please remember that we are unable to code a diagnosis of rule out, probable, possible, questionable, or suspected. Tests that require a diagnosis: * PT/INR DIAGNOSIS: Provider Signature: Date: Thank you Yuli Preston [employer] Information Management Once completed, please kindly fax back to [phone] For questions please call [phone]
== END | disposition home or self-care (01) ==
LOC: C.LABOUTLO 08:32
PROVIDERS: ATTEND Internal Medicine
DX: I48.91 Unspecified atrial fibrillation (principal)

== ENCOUNTER → 2017-01-28 | Outpatient (CLI) | payer OTHER, BC ==
[2017-01-28 10:43] LABS: INR 2.6 (0.9-1.1); PROTHROMBIN TIME (PATIENT) 28.6 SECONDS (9.0-12.0)
== END ==
LOC: C.LABOUTLO 10:05
PROVIDERS: ATTEND Internal Medicine
DX: I48.91 Unspecified atrial fibrillation (principal)

== ENCOUNTER → 2017-02-03 | Outpatient (CLI) | payer OTHER, BC ==
[2017-02-03 13:13] LABS: INR 2.5 (0.9-1.1); PROTHROMBIN TIME (PATIENT) 27.4 SECONDS (9.0-12.0)
== END | disposition home or self-care (01) ==
LOC: C.LABOUTLO 12:40
PROVIDERS: ATTEND Internal Medicine
DX: I48.91 Unspecified atrial fibrillation (principal)

== ENCOUNTER → 2017-03-05 | Outpatient (CLI) | payer OTHER, BC ==
[2017-03-05 09:16] LABS: PROTHROMBIN TIME (PATIENT) 44.8 SECONDS (9.0-12.0)
== END | disposition home or self-care (01) ==
LOC: C.LABOUTLO 08:30
PROVIDERS: ATTEND Internal Medicine
DX: I48.91 Unspecified atrial fibrillation (principal)

== ENCOUNTER → 2017-03-12 | Outpatient (CLI) | payer OTHER, BC ==
[2017-03-12 08:09] LABS: INR 1.6 (0.9-1.1)
== END | disposition home or self-care (01) ==
LOC: C.LABOUTLO 07:49
PROVIDERS: ATTEND Internal Medicine
DX: I48.91 Unspecified atrial fibrillation (principal)

== ENCOUNTER → 2017-03-19 | Outpatient (CLI) | payer OTHER, BC ==
[2017-03-19 09:42] LABS: INR 3.2 (0.9-1.1); PROTHROMBIN TIME (PATIENT) 35.6 SECONDS (9.0-12.0)
== END | disposition home or self-care (01) ==
LOC: C.LABOUTLO 09:19
PROVIDERS: ATTEND Internal Medicine
DX: I48.91 Unspecified atrial fibrillation (principal)

== ENCOUNTER → 2017-03-23 | Outpatient (CLI) | payer OTHER, BC ==
[2017-03-23 08:22] LABS: INR 1.7 (0.9-1.1); PROTHROMBIN TIME (PATIENT) 18.5 SECONDS (9.0-12.0)
== END | disposition home or self-care (01) ==
LOC: C.LABOUTLO 07:54
PROVIDERS: ATTEND Internal Medicine
DX: I48.91 Unspecified atrial fibrillation (principal)

== ENCOUNTER → 2017-03-31 | Outpatient (CLI) | payer OTHER, BC ==
[2017-03-31 08:54] LABS: INR 2.4 (0.9-1.1)
== END | disposition home or self-care (01) ==
LOC: C.LABOUTLO 08:29
PROVIDERS: ATTEND Internal Medicine
DX: I48.91 Unspecified atrial fibrillation (principal)

== ENCOUNTER → 2017-04-21 | Outpatient (CLI) | payer OTHER, BC ==
[2017-04-21 09:06] LABS: INR 3.4 (0.9-1.1); PROTHROMBIN TIME (PATIENT) 38.2 SECONDS (9.0-12.0)
== END | disposition home or self-care (01) ==
LOC: C.LABOUTLO 08:28
PROVIDERS: ATTEND Internal Medicine
DX: I48.91 Unspecified atrial fibrillation (principal)

== ENCOUNTER → 2017-04-24 | Outpatient (CLI) | payer OTHER, BC ==
[2017-04-24 11:25] LABS: INR 1.8 (0.9-1.1); PROTHROMBIN TIME (PATIENT) 19.8 SECONDS (9.0-12.0)
== END | disposition home or self-care (01) ==
LOC: C.LABOUTLO 10:57
PROVIDERS: ATTEND Internal Medicine
DX: I48.91 Unspecified atrial fibrillation (principal)

== ENCOUNTER → 2017-05-05 | Outpatient (CLI) | payer OTHER, BC ==
[2017-05-05 09:25] LABS: INR 1.3 (0.9-1.1); PROTHROMBIN TIME (PATIENT) 14.1 SECONDS (9.0-12.0)
== END | disposition home or self-care (01) ==
LOC: C.LABOUTLO 08:41
PROVIDERS: ATTEND Internal Medicine
DX: I48.91 Unspecified atrial fibrillation (principal)

== ENCOUNTER → 2017-05-07 | Outpatient (CLI) | payer OTHER, BC ==
[2017-05-07 08:39] LABS: INR 1.1 (0.9-1.1); PROTHROMBIN TIME (PATIENT) 11.9 SECONDS (9.0-12.0)
== END | disposition home or self-care (01) ==
LOC: C.LABOUTLO 08:09
PROVIDERS: ATTEND Internal Medicine
DX: I48.91 Unspecified atrial fibrillation (principal)

== ENCOUNTER → 2017-05-14 | Outpatient (CLI) | payer OTHER, BC ==
[2017-05-14 09:54] LABS: INR 3.4 (0.9-1.1); PROTHROMBIN TIME (PATIENT) 34.8 SECONDS (9.0-12.0)
== END | disposition home or self-care (01) ==
LOC: C.LABOUTLO 09:08
PROVIDERS: ATTEND Internal Medicine
DX: I48.91 Unspecified atrial fibrillation (principal)